=== PATIENT | male | born 1960 | race African-American/Black ===

== ENCOUNTER 2016-12-07 21:05 | Inpatient (IN) | payer OTHER ==
[2016-12-07 22:00] VITALS: BMI 37.5
--- NOTE | 2016-12-07 22:10 | HP ---
COWS - Scale Resting Pulse: 1= [place] 81-100 Sweatin= Chills/Flushing Restless Observation: 3= Extraneous Movement Pupil Size: 1= Pupils >than Normal Bone or Joint Aches: 1= Mild Discomfort Runny Nose/ Eye Tearin= Runny Nose/Eyes GI Upset > 30mins: 2= Nausea/Diarrhea Tremor Observation: 2= Slight Tremor Visible Yawning Observation: 1= 1-2x During Session Anxiety or Irritability: 1=Feels Anxious/Irritable Goose Flesh Skin: 0=Smooth Skin COWS Score: 15 CIWA Score - CIWA Score Nausea/Vomitin-Mild Nausea/No Vomiting Muscle Tremors: 3 Anxiety: 3 Agitation: 3 Paroxysmal Sweats: 3 Orientation: 0-Oriented Tacttile Disturbances: 2-Mild Itch/Numbness/Burn Auditory Disturbances: 0-None Visual Disturbances: 0-None Headache: 1-Very Mild CIWA-Ar Total Score: 16 Admission ROS S - HPI Chief Complaint: WITHDRAWAL SYMPTOMS Allergies/Adverse Reactions: Allergies Allergy/AdvReac Type Severity Reaction Status Date / Time aspirin Allergy Severe Hives Verified 02/18/16 20:43 History of Present Illness: 56 Y.O. MAN WITH AN EXTENSIVE HISTORY OF ALCOHOL AND DRUG DEPENDENCE IS SEEKING DETOX. HE WAS LAST HERE FOR DETOX IN 02/2016. HE STATES HIS LONGEST PERIOD OF SOBRIETY WAS 8 YEARS. Exam Limitations: Intoxication - Ebola screening Have you traveled outside of the country in the last 21 days: No Have you had contact with anyone from an Ebola affected area: No Have you been sick,other than usual withdrawal symptoms: No Do you have a fever: No - Review of Systems Constitutional: No Symptoms Reported EENT: reports: Blurred Vision, Eye Pain (RIGHT EYE), Tearing, Ear Discharge ( RIGHT EYE) Respiratory: reports: Wheezing Cardiac: reports: No Symptoms Reported GI: reports: Constipated : reports: No Symptoms Reported Musculoskeletal: reports: Back Pain Integumentary: reports: No Symptoms Reported Neuro: reports: Numbness, Tingling, Tremors Endocrine: reports: No Symptoms Reported Hematology: reports: No Symptoms Reported Psychiatric: reports: Orientated x3, Depressed Other Systems: Reviewed and Negative Patient History - Patient Medical History Hx Anemia: No Hx Asthma: Yes Hx Chronic Obstructive Pulmonary Disease (COPD): No Hx Cancer: No Hx Cardiac Disorders: No Hx Congestive Heart Failure: No Hx Hypertension: Yes Hx Hypercholesterolemia: No Hx Pacemaker: No HX Cerebrovascular Accident: No Hx Seizures: No Hx Dementia: No Hx Diabetes: No Hx Gastrointestinal Disorders: No Hx Liver Disease: Yes (HEP C) Hx Genitourinary Disorders: No Hx Sexually Transmitted Disorders: No Hx Renal Disease (ESRD): No Hx Thyroid Disease: No Hx Human Immunodeficiency Virus (HIV): Yes (since 1991) Hx Hepatitis C: Yes (TREATED) Hx Depression: Yes Hx Suicide Attempt: No Hx Bipolar Disorder: No Hx Schizophrenia: No - Patient Surgical History Past Surgical History: Yes Hx Neurologic Surgery: No Hx Cataract Extraction: No Hx Cardiac Surgery: No Hx Lung Surgery: No Hx Breast Surgery: No Hx Breast Biopsy: No Hx Abdominal Surgery: No Hx Appendectomy: Yes Hx Cholecystectomy: No Hx Genitourinary Surgery: No Hx Section: No Hx Orthopedic Surgery: No Other Surgical History: R index finger tip amputated at age 7. Anesthesia Reaction: No - PPD History Documented Results: Positive w/proof Results: CXR IN PPD to be Administered?: No - Reproductive History Patient is a Female of Child Bearing Age (11 -55 yrs old): No - Smoking Cessation Smoking history: Current every day smoker Have you smoked in the past 12 months: Yes Aproximately how many cigarettes per day: 8 Cigars Per Day: 0 Hx Chewing Tobacco Use: No Initiated information on smoking cessation: Yes 'Breaking Loose' booklet given: 12/07/16 - Substance & Tx. History Hx Alcohol Use: Yes Hx Substance Use: Yes Substance Use Type: Alcohol, Cocaine, Heroin Hx Substance Use Treatment: Yes - Substances Abused Alcohol Frequency: Daily Amount used: 2 PINTS Age of first use: 12 Date of Last Use: 12/07/16 Heroin Route: Injection Frequency: 3-6 times per week Amount used: 4 BAGS Age of first use: 17 Date of Last Use: 12/07/16 Cocaine Route: Injection Frequency: 3-6 times per week Amount used: $20 Age of first use: 18 Date of Last Use: 12/07/16 Family Disease History - Family Disease History Family Disease History: CA: Mother (cervical cancer,cva,), Other: Father (alcohol,) Admission Physical Exam BHS - Vital Signs Vital Signs: Vital Signs - 24 hr 04/05/17 21:58 Temperature 97.3 F L Pulse Rate 98 H Respiratory 20 Rate Blood Pressure 137/84 - Physical General Appearance: Yes: Intoxicated, Other (REDDENED RIGHT EYE) HEENTM: Yes: Normocephalic, Normal Voice Respiratory: Yes: Chest Non-Tender, Lungs Clear, Normal Breath Sounds, No Respiratory Distress, No Accessory Muscle Use Neck: Yes: No masses,lesions,Nodules Breast: Yes: Breast Exam Deferred Cardiology: Yes: Regular Rhythm, Regular Rate, S1, S2 Abdominal: Yes: Flat, Soft Genitourinary: Yes: Other (NO COMPLAINTS REPORTED) Musculoskeletal: Yes: Back pain Extremities: Yes: Normal Inspection, Normal Range of Motion, Non-Tender Neurological: Yes: Alert, Normal Mood/Affect, Normal Response Integumentary: Yes: Normal Color, Dry, Warm, Track Carreon Lymphatic: Yes: Within Normal Limits - Diagnostic (1) Alcohol dependence Current Visit: Yes Status: Chronic (2) Cocaine dependence, uncomplicated Current Visit: Yes Status: Chronic (3) Nicotine dependence Current Visit: Yes Status: Chronic Qualifiers: Nicotine product type: cigarettes Substance use status: uncomplicated Qualified Code(s): F17.210 - Nicotine dependence, cigarettes, uncomplicated (4) Opioid dependence with withdrawal Current Visit: Yes Status: Chronic (5) Asthma Current Visit: Yes Status: Chronic Qualifiers: Asthma severity: mild intermittent Asthma complication type: uncomplicated Qualified Code(s): J45.20 - Mild intermittent asthma, uncomplicated (6) HIV (human immunodeficiency virus infection) Current Visit: Yes Status: Chronic (7) Hepatitis C antibody positive in blood Current Visit: Yes Status: Chronic (8) TB (tuberculosis), treated Current Visit: Yes Status: Chronic Cleared for Admission [facility] - Detox or Rehab [facility] Level of Care: Medically Managed Detox Regimen/Protocol: Methadone/Librium [facility] Breath Alcohol Content Breath Alcohol Content: 0 Urine Drug Screen - Results Urine Drug Screen Results: REMIGIO-Cocaine, OPI-Opiates, MTD-Methadone, OXY- Oxycodone
[2016-12-07] MEDS ORDERED: LISINOPRIL 10 MG TABLET (FP) PO ONE (22:21)
[2016-12-07] MEDS ORDERED: NICOTINE POLACRILEX 2 MG GUM BC PRN (22:49)
[2016-12-07] MEDS ORDERED: MENTHOL/PHENOL 1 EACH UD MM PRN (22:49)
[2016-12-07] MEDS ORDERED: MAG HYDROX/AL HYDROX/SIMETH 30 ML UNIT-DOSE CUP PO PRN (22:49)
[2016-12-07] MEDS ORDERED: hydrOXYzine PAMOATE 50 MG CAPSULE (FP) PO PRN (22:49)
[2016-12-07] MEDS ORDERED: P-EPHED 60MG/TRIPROLIDI 2.5MG TABLET PO PRN (22:49)
[2016-12-07] MEDS ORDERED: MAGNESIUM HYDROX 2400MG/30ML ORAL SUSPENSION 30 ML CUP PO PRN (22:49)
[2016-12-07] MEDS ORDERED: MAGNESIUM CITRATE 300 ML BOTTLE PO PRN (22:49)
[2016-12-07] MEDS ORDERED: guaiFENesin/D-METHORPHAN HB 10 ML UNIT-DOSE CUPS PO PRN (22:49)
[2016-12-07] MEDS ORDERED: LOPERAMIDE HCL 2 MG CAPSULE PO PRN (22:49)
[2016-12-07] MEDS ORDERED: ACETAMINOPHEN 325 MG TABLET (FP) PO PRN (22:49)
[2016-12-08] MEDS ORDERED: chlordiazePOXIDE HCL 25 MG CAPSULE PO PRN
[2016-12-08] MEDS ORDERED: chlordiazePOXIDE HCL 25 MG CAPSULE PO ONE
[2016-12-08] MEDS: diphenhydrAMINE HCL 50 MG CAPSULE PO PRN ×2 (00:35→22:57)
[2016-12-08] MEDS: chlordiazePOXIDE HCL 25 MG CAPSULE PO SCH ×4 (05:27→22:57)
[2016-12-08] MEDS: OFLOXACIN 0.3% OPHTHALMIC SOLUTION 5 ML BOTTLE OD SCH ×2 (06:49→11:34)
[2016-12-08] MEDS ORDERED: ATAZANAVIR SO4 300 MG CAPSULE PO SCH (08:00)
--- NOTE | 2016-12-08 09:44 | PN ---
S CIWA - CIWA Score Nausea/Vomitin Muscle Tremors: 3 Anxiety: 3 Agitation: 3 Paroxysmal Sweats: 1-Minimal Palms Moist Orientation: 0-Oriented Tacttile Disturbances: 1-Very Mild Itch/Numbness Auditory Disturbances: 1-Very Mild Visual Disturbances: 1-Very Mild Sensitivity Headache: 2-Mild CIWA-Ar Total Score: 18 BHS COWS - Scale Resting Pulse: 0= PA 80 or Below Sweatin= Chills/Flushing Restless Observation: 3= Extraneous Movement Pupil Size: 1= Pupils >than Normal Bone or Joint Aches: 2= Severe Diffuse Aches Runny Nose/ Eye Tearin= Nasal Congestion GI Upset > 30mins: 3= Vomiting/Diarrhea Tremor Observation of Outstretched Hands: 2= Slight Tremor Visible Yawning Observation: 1= 1-2x During Session Anxiety or Irritability: 2=Irritable/Anxious Goose Flesh Skin: 0=Smooth Skin COWS Score: 16 BHS Progress Note (SOAP) Subjective: ALERT,IRRITABLE,ANXIOUS,INTERRUPTED SLEEP,TREMOR,PAIN IN THE BODY AND BACK, IRRITABLE WITH REDNESS IN MEDIAL ASPECT OF RIGHT EYE,HISTORY OF DRY EYES Objective: 12/08/16 09:42 Vital Signs Temperature 97.7 F 12/08/16 06:24 Pulse Rate 68 12/08/16 06:24 Respiratory Rate 16 12/08/16 06:24 Blood Pressure 109/74 12/08/16 06:24 O2 Sat by Pulse Oximetry (%) EKG NSR NO CHEST PAIN ,NO SOB,NO DIZZINESS LABS PENDING Assessment: 12/08/16 09:43 IRRITATION WITH REDNESS OF RIGHT EYE Plan: CONTINUE DETOX,TOBREX OPH SOLUTION AND ARTIFICIAL TEAR DROP
[2016-12-08 09:58] LABS: MCH 27.1 pg (25.7-33.7); MCHC 33.1 g/dl (32.0-35.9); MEAN CELL VOLUME 81.9 fl (80-96); PLATELET COUNT 150 K/MM3 (134-434); RDW 14.2 % (11.9-15.9); WHITE BLOOD COUNT 6.9 K/mm3 (4.0-10.0)
[2016-12-08] MEDS ORDERED: METHADONE HCL 10 MG TABLET (FOR DETOX USE ONLY) PO ONE ×3 (10:00→22:00)
[2016-12-08] MEDS ORDERED: ABACAVIR SULFATE 300 MG TABLET PO SCH (10:00)
[2016-12-08] MEDS ORDERED: TENOFOVIR DISOPROXIL FUMARATE 300 MG TABLET PO SCH (10:00)
[2016-12-08] MEDS ORDERED: RITONAVIR 100 MG TABLET PO SCH (10:00)
[2016-12-08] MEDS ORDERED: LISINOPRIL 10 MG TABLET (FP) PO ONE (10:00)
[2016-12-08 10:12] LABS: ALBUMIN 3.2 g/dl (3.4-5.0); ALK PHOS 93 U/L (45-117); ANION GAP 9 (8-16); BILIRUBIN,TOTAL 0.2 mg/dL (0.2-1.0); CALCIUM 8.9 mg/dL (8.5-10.1); CO2 28 mmol/L (21-32); CREATININE 1.2 mg/dL (0.7-1.3); GLUCOSE,RANDOM 76 mg/dL (74-106); SGOT/AST 15 U/L (15-37); SGPT/ALT 17 U/L (12-78); TOT PROT 6.7 g/dl (6.4-8.2)
[2016-12-08] MEDS: NICOTINE 14 MG/24 HOURS TOPICAL PATCH TD SCH (10:57)
[2016-12-08] MEDS: PRENATAL VITAMINS W/ FOLIC ACID TABLET (FP) PO SCH (10:58)
[2016-12-08] MEDS: TOBRAMYCIN 0.3% OPHTH SOLN 5 ML BOTTLE OD SCH ×2 (12:05→17:41)
[2016-12-08] MEDS: ARTIFICIAL TEARS (POLYVINYL ALCOHOL 1.4%) OPTH DROPS OU SCH ×2 (12:59→22:51)
--- NOTE | 2016-12-08 16:27 | EKG ---
Test Reason : Blood Pressure : / mmHG Vent. Rate : 075 BPM Atrial Rate : 075 BPM P-R Int : 182 ms QRS Dur : 086 ms QT Int : 364 ms P-R-T Axes : 064 -37 056 degrees QTc Int : 406 ms NORMAL SINUS RHYTHM LEFT AXIS DEVIATION MINIMAL VOLTAGE CRITERIA FOR LVH, MAY BE NORMAL VARIANT ABNORMAL ECG NO PREVIOUS ECGS AVAILABLE Confirmed by ANDRADE FERNANDES MD ([id number]) on 12/08/2016 4:27:23 PM Referred By: Confirmed By:ANDRADE FERNANDES MD
[2016-12-08 20:55] LABS: URINE APPEARANCE CLEAR; URINE BILIRUBIN NEGATIVE (NEGATIVE); URINE BLOOD NEGATIVE (NEGATIVE); URINE COLOR DKYELLOW; URINE GLUCOSE (UA) NEGATIVE (NEGATIVE); URINE KETONE NEGATIVE (NEGATIVE); URINE LEUK ESTERASE NEGATIVE (NEGATIVE); URINE NITRITE NEGATIVE (NEGATIVE); URINE UROBILINOGEN NEGATIVE E.U./dl (0.2-1.0)
[2016-12-08 21:05] LABS: URINE PROTEIN 2+ (NEGATIVE)
[2016-12-08 21:11] LABS: URINE MUCUS RARE; URINE RBC 6 /hpf (0-3); URINE WBC 1 /hpf (3-5)
[2016-12-08] MEDS: RITONAVIR 100 MG TABLET PO SCH (22:52)
[2016-12-08] MEDS: SULFAMETHOXAZOLE/TRIMETHOPRIM 800MG/160MG D.S. TABLET PO SCH (22:52)
[2016-12-08] MEDS: THIAMINE HCL 100 MG TABLET (FP) PO SCH (22:53)
[2016-12-08] MEDS: ABACAVIR SULFATE 300 MG TABLET PO SCH (22:53)
[2016-12-08] MEDS ORDERED: ATAZANAVIR SO4 300 MG CAPSULE PO ONE (23:02)
[2016-12-08] MEDS ORDERED: TENOFOVIR DISOPROXIL FUMARATE 300 MG TABLET PO ONE (23:05)
[2016-12-09] MEDS: TOBRAMYCIN 0.3% OPHTH SOLN 5 ML BOTTLE OD SCH ×5 (00:04→23:05)
[2016-12-09] MEDS: chlordiazePOXIDE HCL 25 MG CAPSULE PO SCH ×4 (05:58→23:04)
[2016-12-09] MEDS: ARTIFICIAL TEARS (POLYVINYL ALCOHOL 1.4%) OPTH DROPS OU SCH ×3 (06:00→22:55)
[2016-12-09] MEDS ORDERED: METHADONE HCL 5 MG TABLET (FOR DETOX USE ONLY) PO SCH (10:00)
[2016-12-09] MEDS: PRENATAL VITAMINS W/ FOLIC ACID TABLET (FP) PO SCH (11:05)
[2016-12-09] MEDS: NICOTINE 14 MG/24 HOURS TOPICAL PATCH TD SCH (11:06)
--- NOTE | 2016-12-09 11:50 | PN ---
[facility] CIWA - CIWA Score Nausea/Vomitin Muscle Tremors: 3 Anxiety: 2 Agitation: 2 Paroxysmal Sweats: 1-Minimal Palms Moist Orientation: 0-Oriented Tacttile Disturbances: 1-Very Mild Itch/Numbness Auditory Disturbances: 1-Very Mild Visual Disturbances: 1-Very Mild Sensitivity Headache: 2-Mild CIWA-Ar Total Score: 16 BHS COWS - Scale Resting Pulse: 0= [place] 80 or Below Sweatin= Chills/Flushing Restless Observation: 3= Extraneous Movement Pupil Size: 1= Pupils >than Normal Bone or Joint Aches: 2= Severe Diffuse Aches Runny Nose/ Eye Tearin= Runny Nose/Eyes GI Upset > 30mins: 2= Nausea/Diarrhea Tremor Observation of Outstretched Hands: 2= Slight Tremor Visible Yawning Observation: 1= 1-2x During Session Anxiety or Irritability: 2=Irritable/Anxious Goose Flesh Skin: 0=Smooth Skin COWS Score: 16 [facility] Progress Note (SOAP) Subjective: ALERT,IRRITABLE,ANXIOUS,INTERRUPTED SLEEP,PAIN IN THE BODY AND BACK Objective: 12/09/16 11:49 Vital Signs Temperature 97 F L 12/09/16 09:55 Pulse Rate 84 12/09/16 09:55 Respiratory Rate 16 12/09/16 09:55 Blood Pressure 137/90 12/09/16 09:55 O2 Sat by Pulse Oximetry (%) Laboratory Last Values WBC 6.9 K/mm3 (4.0-10.0) 12/08/16 07:00 RBC 4.28 M/mm3 (4.00-5.60) 12/08/16 07:00 Hgb 11.6 GM/dL (11.7-16.9) L 12/08/16 07:00 Hct 35.1 % (35.4-49) L 12/08/16 07:00 MCV 81.9 fl (80-96) 12/08/16 07:00 MCHC 33.1 g/dl (32.0-35.9) 12/08/16 07:00 RDW 14.2 % (11.9-15.9) 12/08/16 07:00 Plt Count 150 K/MM3 (134-434) 12/08/16 07:00 MPV 10.0 fl (7.5-11.1) 12/08/16 07:00 Sodium 140 mmol/L (136-145) 12/08/16 07:00 Potassium 4.3 mmol/L (3.5-5.1) 12/08/16 07:00 Chloride 103 mmol/L (98-107) 12/08/16 07:00 Carbon Dioxide 28 mmol/L (21-32) 12/08/16 07:00 Anion Gap 9 (8-16) 12/08/16 07:00 BUN 10 mg/dL (7-18) 12/08/16 07:00 Creatinine 1.2 mg/dL (0.7-1.3) 12/08/16 07:00 Creat Clearance w eGFR > 60 (>60) 12/08/16 07:00 Random Glucose 76 mg/dL (74-106) D 12/08/16 07:00 Calcium 8.9 mg/dL (8.5-10.1) 12/08/16 07:00 Total Bilirubin 0.2 mg/dL (0.2-1.0) D 12/08/16 07:00 AST 15 U/L (15-37) D 12/08/16 07:00 ALT 17 U/L (12-78) D 12/08/16 07:00 Alkaline Phosphatase 93 U/L (45-117) 12/08/16 07:00 Total Protein 6.7 g/dl (6.4-8.2) 12/08/16 07:00 Albumin 3.2 g/dl (3.4-5.0) L 12/08/16 07:00 Urine Color Dkyellow 12/08/16 13:00 Urine Appearance Clear 12/08/16 13:00 Urine pH 5.0 (5.0-8.0) 12/08/16 13:00 Ur Specific [place] 1.028 (1.001-1.035) 12/08/16 13:00 Urine Protein 2+ (NEGATIVE) H 12/08/16 13:00 Urine Glucose (UA) Negative (NEGATIVE) 12/08/16 13:00 Urine Ketones Negative (NEGATIVE) 12/08/16 13:00 Urine Blood Negative (NEGATIVE) 12/08/16 13:00 Urine Nitrite Negative (NEGATIVE) 12/08/16 13:00 Urine Bilirubin Negative (NEGATIVE) 12/08/16 13:00 Urine Urobilinogen Negative E.U./dl (0.2-1.0) 12/08/16 13:00 Ur Leukocyte Esterase Negative (NEGATIVE) 12/08/16 13:00 Urine RBC 6 /hpf (0-3) 12/08/16 13:00 Urine WBC 1 /hpf (3-5) 12/08/16 13:00 Urine Mucus Rare 12/08/16 13:00 RPR Titer Nonreactive (NONREACTIVE) 12/08/16 07:00 Assessment: 12/09/16 11:49 WITHDRAWAL SYMPTOM Plan: CONTINUE DETOX
--- NOTE | 2016-12-09 18:42 | CONSULT ---
[facility] Psychiatric Consult - Data Date of interview: 12/09/16 Admission source: [facility] Identifying data: Approached patient for psychiatric interview.Mr Stover, politely,declined to be interviewed." I don't think it is necessary.I don't have psychiatric issues to discuss.I am dealing with substance abuse.Thank you, doctor." Nursing staff made aware.
[2016-12-09] MEDS: SULFAMETHOXAZOLE/TRIMETHOPRIM 800MG/160MG D.S. TABLET PO SCH (22:55)
[2016-12-09] MEDS: ATAZANAVIR SO4 300 MG CAPSULE PO SCH (22:55)
[2016-12-09] MEDS: ABACAVIR SULFATE 300 MG TABLET PO SCH (22:55)
[2016-12-09] MEDS: TENOFOVIR DISOPROXIL FUMARATE 300 MG TABLET PO SCH (22:55)
[2016-12-09] MEDS ORDERED: ATAZANAVIR SO4 300 MG CAPSULE PO ONE (23:02)
[2016-12-09] MEDS ORDERED: TENOFOVIR DISOPROXIL FUMARATE 300 MG TABLET PO ONE (23:04)
[2016-12-09] MEDS: RITONAVIR 100 MG TABLET PO SCH (23:04)
[2016-12-09] MEDS: THIAMINE HCL 100 MG TABLET (FP) PO SCH (23:06)
[2016-12-09] MEDS: diphenhydrAMINE HCL 50 MG CAPSULE PO PRN (23:07)
[2016-12-10] MEDS: chlordiazePOXIDE 5 MG CAPSULE PO SCH ×4 (06:16→23:47)
[2016-12-10] MEDS: ARTIFICIAL TEARS (POLYVINYL ALCOHOL 1.4%) OPTH DROPS OU SCH ×2 (06:17→23:47)
[2016-12-10] MEDS: TOBRAMYCIN 0.3% OPHTH SOLN 5 ML BOTTLE OD SCH ×3 (06:18→17:48)
[2016-12-10] MEDS: PRENATAL VITAMINS W/ FOLIC ACID TABLET (FP) PO SCH (11:28)
[2016-12-10] MEDS: METHADONE HCL 5 MG TABLET (FOR DETOX USE ONLY) PO SCH (11:29)
[2016-12-10] MEDS: NICOTINE 14 MG/24 HOURS TOPICAL PATCH TD SCH (11:29)
--- NOTE | 2016-12-10 15:48 | PN ---
S Progress Note (SOAP) Subjective: Constipation, Fatigue. Objective: PT. A & O X 3. 12/10/16 15:47 Vital Signs Temperature 96.8 F L 12/10/16 14:39 Pulse Rate 72 12/10/16 14:39 Respiratory Rate 20 12/10/16 14:39 Blood Pressure 142/92 12/10/16 14:39 O2 Sat by Pulse Oximetry (%) Laboratory Last Values WBC 6.9 K/mm3 (4.0-10.0) 12/08/16 07:00 RBC 4.28 M/mm3 (4.00-5.60) 12/08/16 07:00 Hgb 11.6 GM/dL (11.7-16.9) L 12/08/16 07:00 Hct 35.1 % (35.4-49) L 12/08/16 07:00 MCV 81.9 fl (80-96) 12/08/16 07:00 MCHC 33.1 g/dl (32.0-35.9) 12/08/16 07:00 RDW 14.2 % (11.9-15.9) 12/08/16 07:00 Plt Count 150 K/MM3 (134-434) 12/08/16 07:00 MPV 10.0 fl (7.5-11.1) 12/08/16 07:00 Sodium 140 mmol/L (136-145) 12/08/16 07:00 Potassium 4.3 mmol/L (3.5-5.1) 12/08/16 07:00 Chloride 103 mmol/L (98-107) 12/08/16 07:00 Carbon Dioxide 28 mmol/L (21-32) 12/08/16 07:00 Anion Gap 9 (8-16) 12/08/16 07:00 BUN 10 mg/dL (7-18) 12/08/16 07:00 Creatinine 1.2 mg/dL (0.7-1.3) 12/08/16 07:00 Creat Clearance w eGFR > 60 (>60) 12/08/16 07:00 Random Glucose 76 mg/dL (74-106) D 12/08/16 07:00 Calcium 8.9 mg/dL (8.5-10.1) 12/08/16 07:00 Total Bilirubin 0.2 mg/dL (0.2-1.0) D 12/08/16 07:00 AST 15 U/L (15-37) D 12/08/16 07:00 ALT 17 U/L (12-78) D 12/08/16 07:00 Alkaline Phosphatase 93 U/L (45-117) 12/08/16 07:00 Total Protein 6.7 g/dl (6.4-8.2) 12/08/16 07:00 Albumin 3.2 g/dl (3.4-5.0) L 12/08/16 07:00 Urine Color Dkyellow 12/08/16 13:00 Urine Appearance Clear 12/08/16 13:00 Urine pH 5.0 (5.0-8.0) 12/08/16 13:00 Ur Specific [place] 1.028 (1.001-1.035) 12/08/16 13:00 Urine Protein 2+ (NEGATIVE) H 12/08/16 13:00 Urine Glucose (UA) Negative (NEGATIVE) 12/08/16 13:00 Urine Ketones Negative (NEGATIVE) 12/08/16 13:00 Urine Blood Negative (NEGATIVE) 12/08/16 13:00 Urine Nitrite Negative (NEGATIVE) 12/08/16 13:00 Urine Bilirubin Negative (NEGATIVE) 12/08/16 13:00 Urine Urobilinogen Negative E.U./dl (0.2-1.0) 12/08/16 13:00 Ur Leukocyte Esterase Negative (NEGATIVE) 12/08/16 13:00 Urine RBC 6 /hpf (0-3) 12/08/16 13:00 Urine WBC 1 /hpf (3-5) 12/08/16 13:00 Urine Mucus Rare 12/08/16 13:00 RPR Titer Nonreactive (NONREACTIVE) 12/08/16 07:00 LABS NOTED. Assessment: 12/10/16 15:47 WITHDRAWAL SYMPTOMS. Plan: CONTINUE DETOX. ADVISED PATIENT TO FOLLOW-UP WITH [facility] / REHAB MEDICAL PROVIDER AFTER DISCHARGE FROM DETOX FOR GENERAL MEDICAL ASSESSMENT AND FOR ABNORMAL ADMISSION LAB VALUES.
[2016-12-10] MEDS: ALBUTEROL SO4 6.7 GM HFA INHALER IH PRN (17:52)
[2016-12-10] MEDS: THIAMINE HCL 100 MG TABLET (FP) PO SCH (23:46)
[2016-12-10] MEDS: SULFAMETHOXAZOLE/TRIMETHOPRIM 800MG/160MG D.S. TABLET PO SCH (23:46)
[2016-12-10] MEDS: RITONAVIR 100 MG TABLET PO SCH (23:48)
[2016-12-10] MEDS: TENOFOVIR DISOPROXIL FUMARATE 300 MG TABLET PO SCH (23:48)
[2016-12-10] MEDS: ABACAVIR SULFATE 300 MG TABLET PO SCH (23:48)
[2016-12-10] MEDS: ATAZANAVIR SO4 300 MG CAPSULE PO SCH (23:50)
[2016-12-10] MEDS: diphenhydrAMINE HCL 50 MG CAPSULE PO PRN (23:53)
[2016-12-11] MEDS: chlordiazePOXIDE HCL 10 MG CAPSULE PO SCH ×4 (06:36→23:04)
[2016-12-11] MEDS: ARTIFICIAL TEARS (POLYVINYL ALCOHOL 1.4%) OPTH DROPS OU SCH ×4 (06:42→23:04)
[2016-12-11] MEDS: TOBRAMYCIN 0.3% OPHTH SOLN 5 ML BOTTLE OD SCH ×4 (06:43→17:54)
[2016-12-11] MEDS: METHADONE HCL 5 MG TABLET (FOR DETOX USE ONLY) PO SCH (11:04)
[2016-12-11] MEDS: PRENATAL VITAMINS W/ FOLIC ACID TABLET (FP) PO SCH (11:04)
[2016-12-11] MEDS: NICOTINE 14 MG/24 HOURS TOPICAL PATCH TD SCH (11:04)
[2016-12-11] MEDS ORDERED: BISACODYL 5 MG TABLET.DR (FP) PO ONE (14:30)
--- NOTE | 2016-12-11 15:29 | PN ---
[facility] Progress Note (SOAP) Subjective: Anxious, interrupted sleep, sweating, constipation (hard stool yesterday, wants stool softener) Objective: 12/11/16 15:27 Last Vital Signs Temp Pulse Resp BP Pulse Ox 97.9 F 94 H 18 124/86 12/11/16 14:05 12/11/16 14:05 12/11/16 14:05 12/11/16 14:05 Laboratory Tests 12/08/16 12/08/16 12/08/16 07:00 07:00 07:00 WBC 6.9 RBC 4.28 Hgb 11.6 L Hct 35.1 L MCV 81.9 MCHC 33.1 RDW 14.2 Plt Count 150 MPV 10.0 Sodium 140 Potassium 4.3 Chloride 103 Carbon Dioxide 28 Anion Gap 9 BUN 10 Creatinine 1.2 Creat Clearance w eGFR > 60 Random Glucose 76 D Calcium 8.9 Total Bilirubin 0.2 D AST 15 D ALT 17 D Alkaline Phosphatase 93 Total Protein 6.7 Albumin 3.2 L Urine Color Urine Appearance Urine pH Ur Specific [place] Urine Protein Urine Glucose (UA) Urine Ketones Urine Blood Urine Nitrite Urine Bilirubin Urine Urobilinogen Ur Leukocyte Esterase Urine RBC Urine WBC Urine Mucus RPR Titer Nonreactive 12/08/16 13:00 WBC RBC Hgb Hct MCV MCHC RDW Plt Count MPV Sodium Potassium Chloride Carbon Dioxide Anion Gap BUN Creatinine Creat Clearance w eGFR Random Glucose Calcium Total Bilirubin AST ALT Alkaline Phosphatase Total Protein Albumin Urine Color Dkyellow Urine Appearance Clear Urine pH 5.0 Ur Specific [place] 1.028 Urine Protein 2+ H Urine Glucose (UA) Negative Urine Ketones Negative Urine Blood Negative Urine Nitrite Negative Urine Bilirubin Negative Urine Urobilinogen Negative Ur Leukocyte Esterase Negative Urine RBC 6 Urine WBC 1 Urine Mucus Rare RPR Titer Labs noted: UA: 2+ protein Assessment: 12/11/16 15:28 Withdrawal symptoms Noted with proteinuria Plan: Continue detox Proteinuria: encouraged to drink lots of water, repeat UA
[2016-12-11] MEDS: THIAMINE HCL 100 MG TABLET (FP) PO SCH (23:02)
[2016-12-11] MEDS: ABACAVIR SULFATE 300 MG TABLET PO SCH (23:03)
[2016-12-11] MEDS: SULFAMETHOXAZOLE/TRIMETHOPRIM 800MG/160MG D.S. TABLET PO SCH (23:03)
[2016-12-11] MEDS: ATAZANAVIR SO4 300 MG CAPSULE PO SCH (23:03)
[2016-12-11] MEDS: RITONAVIR 100 MG TABLET PO SCH (23:04)
[2016-12-11] MEDS: TENOFOVIR DISOPROXIL FUMARATE 300 MG TABLET PO SCH (23:04)
[2016-12-12] MEDS: TOBRAMYCIN 0.3% OPHTH SOLN 5 ML BOTTLE OD SCH ×4 (00:30→18:53)
[2016-12-12] MEDS: ARTIFICIAL TEARS (POLYVINYL ALCOHOL 1.4%) OPTH DROPS OU SCH ×3 (06:40→23:09)
[2016-12-12] MEDS ORDERED: METHADONE HCL 10 MG TABLET (FOR DETOX USE ONLY) PO SCH (10:00)
[2016-12-12] MEDS: NICOTINE 14 MG/24 HOURS TOPICAL PATCH TD SCH (10:18)
[2016-12-12] MEDS: PRENATAL VITAMINS W/ FOLIC ACID TABLET (FP) PO SCH (10:18)
[2016-12-12] MEDS: ALBUTEROL SO4 6.7 GM HFA INHALER IH PRN (10:20)
--- NOTE | 2016-12-12 11:10 | PN ---
S Progress Note (SOAP) Subjective: ALERT,IRRITABLE,ANXIOUS,INTERRUPTED SLEEP Objective: 12/12/16 11:09 Vital Signs Temperature 98.2 F 12/12/16 09:47 Pulse Rate 89 12/12/16 09:47 Respiratory Rate 18 12/12/16 09:47 Blood Pressure 136/83 12/12/16 09:47 O2 Sat by Pulse Oximetry (%) Assessment: 12/12/16 11:09 WITHDRAWAL SYMPTOM Plan: CONTINUE DETOX,DISCHARGE IN AM
[2016-12-12 18:19] LABS: URINE APPEARANCE CLEAR; URINE BILIRUBIN NEGATIVE (NEGATIVE); URINE BLOOD NEGATIVE (NEGATIVE); URINE COLOR YELLOW; URINE GLUCOSE (UA) NEGATIVE (NEGATIVE); URINE KETONE NEGATIVE (NEGATIVE); URINE LEUK ESTERASE NEGATIVE (NEGATIVE); URINE NITRITE NEGATIVE (NEGATIVE); URINE UROBILINOGEN NEGATIVE E.U./dl (0.2-1.0)
[2016-12-12 18:35] LABS: URINE PROTEIN 1+ (NEGATIVE)
[2016-12-12 19:26] LABS: URINE MUCUS RARE; URINE RBC 7 /hpf (0-3); URINE WBC 2 /hpf (3-5)
[2016-12-12] MEDS: RITONAVIR 100 MG TABLET PO SCH (23:03)
[2016-12-12] MEDS: TENOFOVIR DISOPROXIL FUMARATE 300 MG TABLET PO SCH (23:03)
[2016-12-12] MEDS: THIAMINE HCL 100 MG TABLET (FP) PO SCH (23:05)
[2016-12-12] MEDS: ATAZANAVIR SO4 300 MG CAPSULE PO SCH (23:07)
[2016-12-12] MEDS: ABACAVIR SULFATE 300 MG TABLET PO SCH (23:07)
[2016-12-12] MEDS: SULFAMETHOXAZOLE/TRIMETHOPRIM 800MG/160MG D.S. TABLET PO SCH (23:09)
[2016-12-12] MEDS: diphenhydrAMINE HCL 50 MG CAPSULE PO PRN (23:10)
[2016-12-13] MEDS: TOBRAMYCIN 0.3% OPHTH SOLN 5 ML BOTTLE OD SCH ×2 (00:50→05:48)
[2016-12-13] MEDS: ARTIFICIAL TEARS (POLYVINYL ALCOHOL 1.4%) OPTH DROPS OU SCH (05:49)
[2016-12-13] MEDS ORDERED: METHADONE HCL 5 MG TABLET (FOR DETOX USE ONLY) PO SCH (06:00)
--- NOTE | 2016-12-13 08:48 | PN ---
S Progress Note (SOAP) Subjective: ALERT,NO COMPLAINT Objective: 12/13/16 08:47 Vital Signs Temperature 98.6 F 12/13/16 06:00 Pulse Rate 75 12/13/16 06:00 Respiratory Rate 18 12/13/16 06:00 Blood Pressure 98/64 12/13/16 06:00 O2 Sat by Pulse Oximetry (%) Assessment: 12/13/16 08:47 DETOX COMPLETED,NO WITHDRAWAL SYMPTOM Plan: DISCHARGE TODAY,FOLLOW UP WITH AFTER CARE PROGRAM ARRANGEMENT
--- NOTE | 2016-12-13 08:52 | DS ---
[facility] Detox Discharge Summary Admission Date: 12/07/16 Discharge Date: 12/13/16 - History Present History: Alcohol Dependence, Cocaine Dependence, Opioid Dependence Additional Comments: FOLLOW UP WITH AFTER CARE PROGRAM ARRANGEMENT AND PMD FOR MEDICAL PROBLEM Pertinent Past History: ASTHMA HIV HEPATITIS C TUBERCULOSIS TREATED - Physical Exam Results Vital Signs: Vital Signs Temperature 98.6 F 12/13/16 06:00 Pulse Rate 75 12/13/16 06:00 Respiratory Rate 18 12/13/16 06:00 Blood Pressure 98/64 12/13/16 06:00 O2 Sat by Pulse Oximetry (%) Pertinent Admission Physical Exam Findings: WITHDRAWAL SYMPTOM - Treatment Hospital Course: Detox Protocol Followed, Detoxed Safely, Responded well, Discharged Condition Good Patient has Accepted a Rehab Referral to: [facility] - Medication Discharge Medications: Ambulatory Orders Albuterol Sulfate Inhaler - [Ventolin HFA Inhaler -] 2 inh PO Q4H PRN #1 canister 09/28/15 Ritonavir [Norvir -] 100 mg PO DAILY #30 tab 09/28/15 Sulfamethoxazole/Trimethoprim [Bactrim DS -] 1 each PO DAILY #30 tablet Abacavir Sulfate [Ziagen -] 600 mg PO HS 12/07/16 Atazanavir [Reyataz -] 300 mg PO HS 12/07/16 Tenofovir Disoproxil Fumarate [Viread -] 300 mg PO HS 12/07/16 - AMA Did Patient Leave Against Medical Advice: No
[2016-12-13] MEDS: ALBUTEROL SO4 6.7 GM HFA INHALER IH PRN (09:26)
[2016-12-13 09:49] VITALS: BP 149/89; PULSE 89; TEMP 98.3
== END 2016-12-13 09:55 | disposition home or self-care (01) | DRG 773 ==
LOC: YASAS 21:05 → Y6N 23:29
PROVIDERS: ADMIT Internal Medicine Addiction Medicine; ATTEND Internal Medicine Addiction Medicine
PROC: HZ2ZZZZ Detoxification Services for Substance Abuse Treatment (ICD-10-PCS; principal; 2016-12-13)
DX: F11.23 Opioid dependence with withdrawal (principal); F10.20 Alcohol dependence, uncomplicated; F14.20 Cocaine dependence, uncomplicated; F17.210 Nicotine dependence, cigarettes, uncomplicated; J45.20 Mild intermittent asthma, uncomplicated; B18.2 Chronic viral hepatitis C; Z21 Asymptomatic human immunodeficiency virus [HIV] infection status; R76.11 Nonspecific reaction to tuberculin skin test without active tuberculosis
CPT/HCPCS: 36415; 71020-TC; 80053; 81003; 81015; 85027; 86593; 93005; 93010

== ENCOUNTER 2017-03-23 08:24 | Inpatient (IN) | payer OTHER ==
[2017-03-23 10:01] VITALS: BMI 38.0
--- NOTE | 2017-03-23 12:28 | HP ---
COWS - Scale Resting Pulse: 1= [place] 81-100 Sweatin= Chills/Flushing Restless Observation: 3= Extraneous Movement Pupil Size: 0= Normal to Room Light Bone or Joint Aches: 4=Acute Joint/Muscle Pain Runny Nose/ Eye Tearin= Nasal Congestion GI Upset > 30mins: 1= Stomach Cramp Tremor Observation: 2= Slight Tremor Visible Yawning Observation: 2= >3x During Session Anxiety or Irritability: 1=Feels Anxious/Irritable Goose Flesh Skin: 0=Smooth Skin COWS Score: 16 Admission ROS S - HPI Chief Complaint: DETOX TX FOR HEROIN DEPENDENCE Allergies/Adverse Reactions: Allergies Allergy/AdvReac Type Severity Reaction Status Date / Time aspirin Allergy Severe Hives Verified 03/23/17 10:20 History of Present Illness: 56 Y/O AA/MALE WITH A HX OF HEROIN AND COCAINE DEPENDENCE SEEKING DETOX TX. PT HAS PREVIOUS EPISODE OF DETOX TX HERE. Exam Limitations: No Limitations - Ebola screening Have you traveled outside of the country in the last 21 days: No Have you had contact with anyone from an Ebola affected area: No Have you been sick,other than usual withdrawal symptoms: No Do you have a fever: No - Review of Systems Constitutional: Chills, Night Sweats, Changes in sleep EENT: reports: Blurred Vision, Tearing, Nose Congestion, Dental Problems (FULL UPPER NAD LOWER DENTURES) Respiratory: reports: Shortness of Breath (HX ASTHMA), Wheezing Cardiac: reports: No Symptoms Reported GI: reports: Constipated, Diarrhea, Poor Fluid Intake, Abdominal cramping : reports: Dysuria (DUE TO HEROIN USE) Musculoskeletal: reports: Back Pain, Joint Pain, Muscle Pain Integumentary: reports: Bruising (SCARS FROM IVDU INJ SITES) Neuro: reports: Headache, Numbness (HX NUROPATHY RIGHT LEG), Tingling Endocrine: reports: No Symptoms Reported Hematology: reports: Anemia (IN THE PAST) Psychiatric: reports: Orientated x3, Anxious Other Systems: Reviewed and Negative Patient History - Patient Medical History Hx Anemia: Yes (IN THE PAST) Hx Asthma: Yes (Pt is on MDI.) Hx Chronic Obstructive Pulmonary Disease (COPD): No Hx Cancer: No Hx Cardiac Disorders: No Hx Congestive Heart Failure: No Hx Hypertension: Yes (on meds.) Hx Hypercholesterolemia: No Hx Pacemaker: No HX Cerebrovascular Accident: No Hx Seizures: No Hx Dementia: No Hx Diabetes: No Hx Gastrointestinal Disorders: No Hx Liver Disease: Yes (HEP C) Hx Genitourinary Disorders: No Hx Sexually Transmitted Disorders: Yes (GONORRHEA HX) Hx Renal Disease (ESRD): No Hx Thyroid Disease: No Hx Human Immunodeficiency Virus (HIV): Yes (since 1991;ON MED ) Hx Hepatitis C: Yes (TREATED) Hx Depression: No Hx Suicide Attempt: No (DENIES) Hx Bipolar Disorder: No Hx Schizophrenia: No - Patient Surgical History Past Surgical History: Yes Hx Neurologic Surgery: No Hx Cataract Extraction: No Hx Cardiac Surgery: No Hx Lung Surgery: No Hx Breast Surgery: No Hx Breast Biopsy: No Hx Abdominal Surgery: No Hx Appendectomy: Yes Hx Cholecystectomy: No Hx Genitourinary Surgery: No Hx Orthopedic Surgery: No Other Surgical History: R index finger tip amputated at age 7. Anesthesia Reaction: No - PPD History Previous Implant?: Yes Documented Results: Positive w/proof Implanted On Prior R Admission?: No Results: CXR NEG 12/19 PPD to be Administered?: No - Reproductive History Patient is a Female of Child Bearing Age (11 -55 yrs old): No (MALE) Patient : (N/C) - Smoking Cessation Smoking history: Current every day smoker Have you smoked in the past 12 months: Yes Aproximately how many cigarettes per day: 5 Cigars Per Day: 0 Hx Chewing Tobacco Use: No Initiated information on smoking cessation: Yes 'Breaking Loose' booklet given: 03/23/17 - Substance & Tx. History Hx Alcohol Use: No Hx Substance Use: Yes (HEROIN/COCAINE) Substance Use Type: Cocaine, Heroin Hx Substance Use Treatment: Yes (LAST TX AT [facility] DETOX) - Substances Abused Heroin Route: Injection Frequency: Daily Amount used: 5-6 BAGS Age of first use: 18 Date of Last Use: 03/22/17 Cocaine Route: Injection Frequency: Daily Amount used: $20 Age of first use: 17 Date of Last Use: 03/22/17 Family Disease History - Family Disease History Family Disease History: CA: Mother (cervical cancer,cva,), Other: Father (alcohol,) Admission Physical Exam BHS - Vital Signs Vital Signs: Vital Signs - 24 hr 03/23/17 09:59 Temperature 98.2 F Pulse Rate 81 Respiratory 20 Rate Blood Pressure 151/100 - Physical General Appearance: Yes: Moderate Distress, Obese, Irritable, Anxious HEENTM: Yes: EOMI, CHRISTINE, Pharynx Normal Respiratory: Yes: Chest Non-Tender, Lungs Clear, Normal Breath Sounds, No Respiratory Distress Neck: Yes: No masses,lesions,Nodules, Supple, Trachea in good position Breast: Yes: Breast Exam Deferred Cardiology: Yes: Regular Rhythm, Regular Rate, S1, S2 Abdominal: Yes: Normal Bowel Sounds, Non Tender, Soft, Protuberent Genitourinary: Yes: Other (N/C) Musculoskeletal: Yes: full range of Motion, Gait Steady Extremities: Yes: Normal Range of Motion, Non-Tender Neurological: Yes: 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, Fully Oriented, Alert, Motor Strength 5/5 Integumentary: Yes: Dry, Warm, Track Carreon (OLD SCARS ON BOTH HANDS FROM IVD INJ.) Lymphatic: Yes: Within Normal Limits - Diagnostic (1) Asthma Current Visit: Yes Status: Chronic Qualifiers: Asthma severity: mild intermittent Asthma complication type: uncomplicated Qualified Code(s): J45.20 - Mild intermittent asthma, uncomplicated (2) Cocaine dependence, uncomplicated Current Visit: Yes Status: Acute (3) HIV (human immunodeficiency virus infection) Current Visit: Yes Status: Chronic (4) Hepatitis C antibody positive in blood Current Visit: Yes Status: Chronic (5) Nicotine dependence Current Visit: Yes Status: Acute Qualifiers: Nicotine product type: cigarettes Substance use status: in withdrawal Qualified Code(s): F17.213 - Nicotine dependence, cigarettes, with withdrawal (6) Opioid dependence with withdrawal Current Visit: Yes Status: Acute Cleared for Admission [facility] - Detox or Rehab [facility] Level of Care: Medically Managed Detox Regimen/Protocol: Methadone [facility] Breath Alcohol Content Breath Alcohol Content: 0 Urine Drug Screen - Results Drug Screen Negative: No Urine Drug Screen Results: REMIGIO-Cocaine, OPI-Opiates
[2017-03-23] MEDS ORDERED: LOPERAMIDE HCL 2 MG CAPSULE PO PRN (12:40)
[2017-03-23] MEDS ORDERED: guaiFENesin/D-METHORPHAN HB 10 ML UNIT-DOSE CUPS PO PRN (12:40)
[2017-03-23] MEDS ORDERED: P-EPHED 60MG/TRIPROLIDI 2.5MG TABLET PO PRN (12:40)
[2017-03-23] MEDS ORDERED: MENTHOL/PHENOL 1 EACH UD MM PRN (12:40)
[2017-03-23] MEDS ORDERED: NICOTINE POLACRILEX 2 MG GUM BC PRN (12:40)
[2017-03-23] MEDS ORDERED: IBUPROFEN 400 MG TABLET (FP) PO PRN (12:40)
[2017-03-23] MEDS ORDERED: MAGNESIUM CITRATE 300 ML BOTTLE PO PRN (12:40)
[2017-03-23] MEDS ORDERED: ACETAMINOPHEN 325 MG TABLET (FP) PO PRN (12:40)
[2017-03-23] MEDS ORDERED: MAG HYDROX/AL HYDROX/SIMETH 30 ML UNIT-DOSE CUP PO PRN (12:40)
[2017-03-23] MEDS ORDERED: HYPROMELLOSE OP SCH (12:45)
[2017-03-23] MEDS ORDERED: GLYCERIN OP SCH (12:45)
[2017-03-23] MEDS ORDERED: [UNRECOGNIZED DRUG - OTHER] OP SCH (12:45)
[2017-03-23] MEDS ORDERED: PEG OP SCH (12:45)
[2017-03-23] MEDS ORDERED: METHADONE HCL 10 MG TABLET (FOR DETOX USE ONLY) PO ONE ×2 (12:55→23:00)
[2017-03-23] MEDS: SULFAMETHOXAZOLE/TRIMETHOPRIM 800MG/160MG D.S. TABLET PO SCH (14:05)
[2017-03-23] MEDS: diazePAM 5 MG TABLET PO PRN ×2 (14:05→22:36)
[2017-03-23] MEDS: LISINOPRIL 20 MG TABLET (FP) PO SCH (14:05)
[2017-03-23] MEDS: NICOTINE 14 MG/24 HOURS TOPICAL PATCH TD SCH (14:09)
[2017-03-23 15:46] LABS: URINE APPEARANCE CLEAR; URINE BILIRUBIN NEGATIVE (NEGATIVE); URINE BLOOD 1+ (NEGATIVE); URINE COLOR YELLOW; URINE GLUCOSE (UA) NEGATIVE (NEGATIVE); URINE KETONE NEGATIVE (NEGATIVE); URINE LEUK ESTERASE NEGATIVE (NEGATIVE); URINE NITRITE NEGATIVE (NEGATIVE); URINE PROTEIN 2+ (NEGATIVE); URINE UROBILINOGEN NEGATIVE mg/dL (0.2-1.0)
[2017-03-23 15:49] LABS: URINE MUCUS RARE; URINE RBC 11 /hpf (0-3); URINE WBC 1 /hpf (3-5)
--- NOTE | 2017-03-23 16:38 | EKG ---
Test Reason : Blood Pressure : / mmHG Vent. Rate : 079 BPM Atrial Rate : 079 BPM P-R Int : 188 ms QRS Dur : 090 ms QT Int : 386 ms P-R-T Axes : 067 -36 053 degrees QTc Int : 442 ms NORMAL SINUS RHYTHM LEFT AXIS DEVIATION ABNORMAL ECG WHEN COMPARED WITH ECG OF 07-DEC-2016 23:24, NO SIGNIFICANT CHANGE WAS FOUND Confirmed by ANDRADE FERNANDES MD ([id number]) on 03/23/2017 4:38:21 PM Referred By: Confirmed By:ANDRADE FERNANDES MD
[2017-03-23] MEDS: THIAMINE HCL 100 MG TABLET (FP) PO SCH (22:36)
[2017-03-23] MEDS: ARTIFICIAL TEARS (POLYVINYL ALCOHOL 1.4%) OPTH DROPS OU SCH (22:39)
[2017-03-24] MEDS ORDERED: METHADONE HCL 10 MG TABLET (FOR DETOX USE ONLY) PO ONE (10:00)
[2017-03-24 10:16] LABS: MCH 27.1 pg (25.7-33.7); MCHC 33.3 g/dl (32.0-35.9); MEAN CELL VOLUME 81.4 fl (80-96); MEAN PLT VOLUME 9.7 fl (7.5-11.1); PLATELET COUNT 161 K/MM3 (134-434); RDW 13.8 % (11.9-15.9); WHITE BLOOD COUNT 6.6 K/mm3 (4.0-10.0)
[2017-03-24] MEDS: ARTIFICIAL TEARS (POLYVINYL ALCOHOL 1.4%) OPTH DROPS OU SCH ×2 (10:44→22:37)
[2017-03-24] MEDS: SULFAMETHOXAZOLE/TRIMETHOPRIM 800MG/160MG D.S. TABLET PO SCH (10:44)
[2017-03-24] MEDS: NICOTINE 14 MG/24 HOURS TOPICAL PATCH TD SCH (10:44)
[2017-03-24] MEDS: LISINOPRIL 20 MG TABLET (FP) PO SCH (10:44)
[2017-03-24] MEDS: PRENATAL VITAMINS W/ FOLIC ACID TABLET (FP) PO SCH (10:44)
[2017-03-24] MEDS: diazePAM 5 MG TABLET PO PRN ×3 (10:47→22:36)
[2017-03-24] MEDS: MAGNESIUM HYDROX 2400MG/30ML ORAL SUSPENSION 30 ML CUP PO PRN (10:48)
--- NOTE | 2017-03-24 10:49 | PN ---
[facility] COWS - Scale Resting Pulse: 1= [place] 81-100 Sweatin= Chills/Flushing Restless Observation: 3= Extraneous Movement Pupil Size: 1= Pupils >than Normal Bone or Joint Aches: 2= Severe Diffuse Aches Runny Nose/ Eye Tearin= Runny Nose/Eyes GI Upset > 30mins: 2= Nausea/Diarrhea Tremor Observation of Outstretched Hands: 2= Slight Tremor Visible Yawning Observation: 1= 1-2x During Session Anxiety or Irritability: 2=Irritable/Anxious Goose Flesh Skin: 0=Smooth Skin COWS Score: 17 S Progress Note (SOAP) Subjective: ALERT,IRRITABLE,ANXIOUS,INTERRUPTED SLEEP,TREMOR,PAIN IN THE BODY AND BACK Objective: 03/24/17 10:47 Vital Signs Temperature 98.7 F 03/24/17 10:00 Pulse Rate 93 H 03/24/17 10:00 Respiratory Rate 16 03/24/17 10:00 Blood Pressure 139/88 03/24/17 10:00 O2 Sat by Pulse Oximetry (%) EKG EKG NSR Laboratory Last Values WBC 6.6 K/mm3 (4.0-10.0) 03/24/17 06:30 RBC 4.82 M/mm3 (4.00-5.60) 03/24/17 06:30 Hgb 13.1 GM/dL (11.7-16.9) D 03/24/17 06:30 Hct 39.3 % (35.4-49) 03/24/17 06:30 MCV 81.4 fl (80-96) 03/24/17 06:30 MCH 27.1 pg (25.7-33.7) 03/24/17 06:30 MCHC 33.3 g/dl (32.0-35.9) 03/24/17 06:30 RDW 13.8 % (11.9-15.9) 03/24/17 06:30 Plt Count 161 K/MM3 (134-434) 03/24/17 06:30 MPV 9.7 fl (7.5-11.1) 03/24/17 06:30 Sodium 138 mmol/L (136-145) 03/24/17 06:30 Potassium 3.9 mmol/L (3.5-5.1) 03/24/17 06:30 Chloride 104 mmol/L (98-107) 03/24/17 06:30 Urine Color Yellow 03/23/17 13:20 Urine Appearance Clear 03/23/17 13:20 Urine pH 6.0 (5.0-8.0) 03/23/17 13:20 Ur Specific [place] >= 1.030 (1.005-1.025) H 03/23/17 13:20 Urine Protein 2+ (NEGATIVE) H 03/23/17 13:20 Urine Glucose (UA) Negative (NEGATIVE) 03/23/17 13:20 Urine Ketones Negative (NEGATIVE) 03/23/17 13:20 Urine Blood 1+ (NEGATIVE) H 03/23/17 13:20 Urine Nitrite Negative (NEGATIVE) 03/23/17 13:20 Urine Bilirubin Negative (NEGATIVE) 03/23/17 13:20 Urine Urobilinogen Negative mg/dL (0.2-1.0) 03/23/17 13:20 Ur Leukocyte Esterase Negative (NEGATIVE) 03/23/17 13:20 Urine RBC 11 /hpf (0-3) 03/23/17 13:20 Urine WBC 1 /hpf (3-5) 03/23/17 13:20 Urine Mucus Rare 03/23/17 13:20 LABS PENDING Assessment: 03/24/17 10:48 WITHDRAWAL SYMPTOM Plan: CONTINUE DETOX,REPEAT UA
[2017-03-24 10:56] LABS: ALBUMIN 3.1 g/dl (3.4-5.0); ALK PHOS 89 U/L (45-117); ANION GAP 8 (8-16); BILIRUBIN,TOTAL 0.2 mg/dL (0.2-1.0); CO2 26 mmol/L (21-32); CREATININE 1.1 mg/dL (0.7-1.3); GLUCOSE,RANDOM 84 mg/dL (74-106); SGOT/AST 13 U/L (15-37); SGPT/ALT 17 U/L (12-78); TOT PROT 6.7 g/dl (6.4-8.2)
--- NOTE | 2017-03-24 16:28 | CONSULT ---
[facility] Psychiatric Consult - Data Date of interview: 03/24/17 Admission source: [facility] Identifying data: Readmission to [facility] for this 56 y/o AA male seeking detox treatment on for heroin and cocaine dependence.Patient is single without children,domiciled,unemployed and supported on SSI benefits. Substance Abuse History: Patient reports a long history of substance abuse ( heroin and cocaine via the intravenous route since age 17).Smokes 1/2 pack of cigarettes daily. Medical History: Significant for HIV infection since 1991,bronchial asthma, hepatitis C,hypertension,gonorrhea (treated),anemia and surgical amputation of fingertip of right index (age [age]). Psychiatric History: Patient denies. Physical/Sexual Abuse/Trauma History: Patient denies. Additional Comment: Urine Drug Screen Results: REMIGIO-Cocaine, OPI-Opiates.Noted. Mental Status Exam - Mental Status Exam Alert and Oriented to: Time, Place, Person Cognitive Function: Good Patient Appearance: Well Groomed Mood: Hopeful, Euthymic Affect: Appropriate, Normal Range Patient Behavior: Appropriate, Cooperative Speech Pattern: Clear, Appropriate Voice Loudness: Normal Thought Process: Intact, Goal Oriented Thought Disorder: Not Present Hallucinations: Denies Suicidal Ideation: Denies Homicidal Ideation: Denies Insight/Judgement: Poor Sleep: Well Appetite: Good Muscle strength/Tone: Normal Gait/Station: Normal Psychiatric Findings - Problem List ([place] 1, 2,3) (1) Opioid dependence with withdrawal Current Visit: Yes Status: Acute (2) Cocaine dependence, uncomplicated Current Visit: Yes Status: Acute (3) Nicotine dependence Current Visit: Yes Status: Acute Qualifiers: Nicotine product type: cigarettes Substance use status: in withdrawal Qualified Code(s): F17.213 - Nicotine dependence, cigarettes, with withdrawal (4) Asthma Current Visit: Yes Status: Chronic Qualifiers: Asthma severity: mild intermittent Asthma complication type: uncomplicated Qualified Code(s): J45.20 - Mild intermittent asthma, uncomplicated (5) HIV (human immunodeficiency virus infection) Current Visit: Yes Status: Chronic (6) Hepatitis C antibody positive in blood Current Visit: Yes Status: Chronic - Initial Treatment Plan Initial Treatment Plan: Psychoeducation.Detoxification in progress.Observation.
[2017-03-24] MEDS: THIAMINE HCL 100 MG TABLET (FP) PO SCH (22:37)
[2017-03-25] MEDS ORDERED: METHADONE HCL 5 MG TABLET (FOR DETOX USE ONLY) PO ONE (10:00)
[2017-03-25] MEDS: LISINOPRIL 20 MG TABLET (FP) PO SCH (10:50)
[2017-03-25] MEDS: diazePAM 5 MG TABLET PO PRN ×2 (10:50→22:36)
[2017-03-25] MEDS: PRENATAL VITAMINS W/ FOLIC ACID TABLET (FP) PO SCH (10:50)
[2017-03-25] MEDS: SULFAMETHOXAZOLE/TRIMETHOPRIM 800MG/160MG D.S. TABLET PO SCH (10:50)
[2017-03-25] MEDS: ARTIFICIAL TEARS (POLYVINYL ALCOHOL 1.4%) OPTH DROPS OU SCH ×2 (10:51→22:34)
[2017-03-25] MEDS: NICOTINE 14 MG/24 HOURS TOPICAL PATCH TD SCH (10:51)
--- NOTE | 2017-03-25 11:36 | PN ---
[facility] COWS - Scale Resting Pulse: 0= [place] 80 or Below Sweatin= Chills/Flushing Restless Observation: 3= Extraneous Movement Pupil Size: 1= Pupils >than Normal Bone or Joint Aches: 2= Severe Diffuse Aches Runny Nose/ Eye Tearin= Runny Nose/Eyes GI Upset > 30mins: 3= Vomiting/Diarrhea Tremor Observation of Outstretched Hands: 2= Slight Tremor Visible Yawning Observation: 1= 1-2x During Session Anxiety or Irritability: 2=Irritable/Anxious Goose Flesh Skin: 0=Smooth Skin COWS Score: 17 S Progress Note (SOAP) Subjective: alert,irritable,anxious,interrupted sleep,tremor,pain in the body and back Objective: 03/25/17 11:35 Vital Signs Temperature 97.2 F L 03/25/17 09:46 Pulse Rate 82 03/25/17 09:46 Respiratory Rate 18 03/25/17 09:46 Blood Pressure 139/94 03/25/17 09:46 O2 Sat by Pulse Oximetry (%) Laboratory Last Values WBC 6.6 K/mm3 (4.0-10.0) 03/24/17 06:30 RBC 4.82 M/mm3 (4.00-5.60) 03/24/17 06:30 Hgb 13.1 GM/dL (11.7-16.9) D 03/24/17 06:30 Hct 39.3 % (35.4-49) 03/24/17 06:30 MCV 81.4 fl (80-96) 03/24/17 06:30 MCH 27.1 pg (25.7-33.7) 03/24/17 06:30 MCHC 33.3 g/dl (32.0-35.9) 03/24/17 06:30 RDW 13.8 % (11.9-15.9) 03/24/17 06:30 Plt Count 161 K/MM3 (134-434) 03/24/17 06:30 MPV 9.7 fl (7.5-11.1) 03/24/17 06:30 Sodium 138 mmol/L (136-145) 03/24/17 06:30 Potassium 3.9 mmol/L (3.5-5.1) 03/24/17 06:30 Chloride 104 mmol/L (98-107) 03/24/17 06:30 Carbon Dioxide 26 mmol/L (21-32) 03/24/17 06:30 Anion Gap 8 (8-16) 03/24/17 06:30 BUN 11 mg/dL (7-18) 03/24/17 06:30 Creatinine 1.1 mg/dL (0.7-1.3) 03/24/17 06:30 Creat Clearance w eGFR > 60 (>60) 03/24/17 06:30 Random Glucose 84 mg/dL (74-106) 03/24/17 06:30 Calcium 9.0 mg/dL (8.5-10.1) 03/24/17 06:30 Total Bilirubin 0.2 mg/dL (0.2-1.0) 03/24/17 06:30 AST 13 U/L (15-37) L 03/24/17 06:30 ALT 17 U/L (12-78) 03/24/17 06:30 Alkaline Phosphatase 89 U/L (45-117) 03/24/17 06:30 Total Protein 6.7 g/dl (6.4-8.2) 03/24/17 06:30 Albumin 3.1 g/dl (3.4-5.0) L 03/24/17 06:30 Urine Color Yellow 03/23/17 13:20 Urine Appearance Clear 03/23/17 13:20 Urine pH 6.0 (5.0-8.0) 03/23/17 13:20 Ur Specific [place] >= 1.030 (1.005-1.025) H 03/23/17 13:20 Urine Protein 2+ (NEGATIVE) H 03/23/17 13:20 Urine Glucose (UA) Negative (NEGATIVE) 03/23/17 13:20 Urine Ketones Negative (NEGATIVE) 03/23/17 13:20 Urine Blood 1+ (NEGATIVE) H 03/23/17 13:20 Urine Nitrite Negative (NEGATIVE) 03/23/17 13:20 Urine Bilirubin Negative (NEGATIVE) 03/23/17 13:20 Urine Urobilinogen Negative mg/dL (0.2-1.0) 03/23/17 13:20 Ur Leukocyte Esterase Negative (NEGATIVE) 03/23/17 13:20 Urine RBC 11 /hpf (0-3) 03/23/17 13:20 Urine WBC 1 /hpf (3-5) 03/23/17 13:20 Urine Mucus Rare 03/23/17 13:20 RPR Titer Nonreactive (NONREACTIVE) 03/24/17 06:30 Assessment: 03/25/17 11:35 withdrawal symptom Plan: continue detox
[2017-03-25] MEDS: diphenhydrAMINE HCL 50 MG CAPSULE PO PRN (22:34)
[2017-03-25] MEDS: THIAMINE HCL 100 MG TABLET (FP) PO SCH (22:35)
[2017-03-26] MEDS: ALBUTEROL SO4 6.7 GM HFA INHALER IH PRN ×2 (08:09→22:34)
[2017-03-26] MEDS ORDERED: METHADONE HCL 5 MG TABLET (FOR DETOX USE ONLY) PO ONE (10:00)
[2017-03-26] MEDS: SULFAMETHOXAZOLE/TRIMETHOPRIM 800MG/160MG D.S. TABLET PO SCH (10:21)
[2017-03-26] MEDS: diazePAM 5 MG TABLET PO PRN (10:21)
[2017-03-26] MEDS: PRENATAL VITAMINS W/ FOLIC ACID TABLET (FP) PO SCH (10:21)
[2017-03-26] MEDS: LISINOPRIL 20 MG TABLET (FP) PO SCH (10:21)
[2017-03-26] MEDS: ARTIFICIAL TEARS (POLYVINYL ALCOHOL 1.4%) OPTH DROPS OU SCH ×2 (10:22→22:33)
[2017-03-26] MEDS: NICOTINE 14 MG/24 HOURS TOPICAL PATCH TD SCH (10:22)
--- NOTE | 2017-03-26 10:27 | PN ---
S Progress Note (SOAP) Subjective: ALERT,IRRITABLE,ANXIOUS,INTERRUPTED SLEEP,PAIN IN THE BODY AND BACK Objective: 03/26/17 10:25 Vital Signs Temperature 97.7 F 03/26/17 09:54 Pulse Rate 102 H 03/26/17 09:54 Respiratory Rate 20 03/26/17 09:54 Blood Pressure 126/73 03/26/17 09:54 O2 Sat by Pulse Oximetry (%) Laboratory Last Values WBC 6.6 K/mm3 (4.0-10.0) 03/24/17 06:30 RBC 4.82 M/mm3 (4.00-5.60) 03/24/17 06:30 Hgb 13.1 GM/dL (11.7-16.9) D 03/24/17 06:30 Hct 39.3 % (35.4-49) 03/24/17 06:30 MCV 81.4 fl (80-96) 03/24/17 06:30 MCH 27.1 pg (25.7-33.7) 03/24/17 06:30 MCHC 33.3 g/dl (32.0-35.9) 03/24/17 06:30 RDW 13.8 % (11.9-15.9) 03/24/17 06:30 Plt Count 161 K/MM3 (134-434) 03/24/17 06:30 MPV 9.7 fl (7.5-11.1) 03/24/17 06:30 Sodium 138 mmol/L (136-145) 03/24/17 06:30 Potassium 3.9 mmol/L (3.5-5.1) 03/24/17 06:30 Chloride 104 mmol/L (98-107) 03/24/17 06:30 Carbon Dioxide 26 mmol/L (21-32) 03/24/17 06:30 Anion Gap 8 (8-16) 03/24/17 06:30 BUN 11 mg/dL (7-18) 03/24/17 06:30 Creatinine 1.1 mg/dL (0.7-1.3) 03/24/17 06:30 Creat Clearance w eGFR > 60 (>60) 03/24/17 06:30 Random Glucose 84 mg/dL (74-106) 03/24/17 06:30 Calcium 9.0 mg/dL (8.5-10.1) 03/24/17 06:30 Total Bilirubin 0.2 mg/dL (0.2-1.0) 03/24/17 06:30 AST 13 U/L (15-37) L 03/24/17 06:30 ALT 17 U/L (12-78) 03/24/17 06:30 Alkaline Phosphatase 89 U/L (45-117) 03/24/17 06:30 Total Protein 6.7 g/dl (6.4-8.2) 03/24/17 06:30 Albumin 3.1 g/dl (3.4-5.0) L 03/24/17 06:30 Urine Color Yellow 03/23/17 13:20 Urine Appearance Clear 03/23/17 13:20 Urine pH 6.0 (5.0-8.0) 03/23/17 13:20 Ur Specific [place] >= 1.030 (1.005-1.025) H 03/23/17 13:20 Urine Protein 2+ (NEGATIVE) H 03/23/17 13:20 Urine Glucose (UA) Negative (NEGATIVE) 03/23/17 13:20 Urine Ketones Negative (NEGATIVE) 03/23/17 13:20 Urine Blood 1+ (NEGATIVE) H 03/23/17 13:20 Urine Nitrite Negative (NEGATIVE) 03/23/17 13:20 Urine Bilirubin Negative (NEGATIVE) 03/23/17 13:20 Urine Urobilinogen Negative mg/dL (0.2-1.0) 03/23/17 13:20 Ur Leukocyte Esterase Negative (NEGATIVE) 03/23/17 13:20 Urine RBC 11 /hpf (0-3) 03/23/17 13:20 Urine WBC 1 /hpf (3-5) 03/23/17 13:20 Urine Mucus Rare 03/23/17 13:20 RPR Titer Nonreactive (NONREACTIVE) 03/24/17 06:30 Assessment: 03/26/17 10:26 WITHDRAWAL SYMPTOM Plan: CONTINUE DETOX
[2017-03-26 12:37] LABS: URINE APPEARANCE CLEAR; URINE BILIRUBIN NEGATIVE (NEGATIVE); URINE BLOOD NEGATIVE (NEGATIVE); URINE COLOR LTYELLOW; URINE GLUCOSE (UA) NEGATIVE (NEGATIVE); URINE KETONE NEGATIVE (NEGATIVE); URINE LEUK ESTERASE NEGATIVE (NEGATIVE); URINE NITRITE NEGATIVE (NEGATIVE); URINE UROBILINOGEN NEGATIVE mg/dL (0.2-1.0)
[2017-03-26 12:41] LABS: URINE PROTEIN 2+ (NEGATIVE)
[2017-03-26 12:43] LABS: URINE MUCUS RARE; URINE RBC 4 /hpf (0-3); URINE WBC 1 /hpf (3-5)
[2017-03-26] MEDS: THIAMINE HCL 100 MG TABLET (FP) PO SCH (22:32)
[2017-03-26] MEDS: diphenhydrAMINE HCL 50 MG CAPSULE PO PRN (22:33)
[2017-03-27] MEDS ORDERED: METHADONE HCL 10 MG TABLET (FOR DETOX USE ONLY) PO ONE (10:00)
[2017-03-27] MEDS: SULFAMETHOXAZOLE/TRIMETHOPRIM 800MG/160MG D.S. TABLET PO SCH (10:27)
[2017-03-27] MEDS: PRENATAL VITAMINS W/ FOLIC ACID TABLET (FP) PO SCH (10:27)
[2017-03-27] MEDS: LISINOPRIL 20 MG TABLET (FP) PO SCH (10:27)
[2017-03-27] MEDS: NICOTINE 14 MG/24 HOURS TOPICAL PATCH TD SCH (10:28)
[2017-03-27] MEDS: ARTIFICIAL TEARS (POLYVINYL ALCOHOL 1.4%) OPTH DROPS OU SCH ×2 (10:28→22:43)
--- NOTE | 2017-03-27 10:28 | PN ---
S Progress Note (SOAP) Subjective: ALERT,IRRITABLE,ANXIOUS,INTERRUPTED SLEEP Objective: 03/27/17 10:27 Vital Signs Temperature 95.9 F L 03/27/17 06:12 Pulse Rate 72 03/27/17 06:12 Respiratory Rate 18 03/27/17 06:12 Blood Pressure 114/80 03/27/17 06:12 O2 Sat by Pulse Oximetry (%) Assessment: 03/27/17 10:28 WITHDRAWAL SYMPTOM Plan: CONTINUE DETOX,DISCHARGE IN AM
[2017-03-27] MEDS: THIAMINE HCL 100 MG TABLET (FP) PO SCH (22:43)
[2017-03-27] MEDS: diphenhydrAMINE HCL 50 MG CAPSULE PO PRN (22:44)
[2017-03-27] MEDS: ALBUTEROL SO4 6.7 GM HFA INHALER IH PRN (22:45)
[2017-03-28] MEDS: MAGNESIUM HYDROX 2400MG/30ML ORAL SUSPENSION 30 ML CUP PO PRN (05:50)
[2017-03-28] MEDS ORDERED: METHADONE HCL 5 MG TABLET (FOR DETOX USE ONLY) PO ONE (06:00)
--- NOTE | 2017-03-28 08:47 | DS ---
[facility] Detox Discharge Summary Admission Date: 03/23/17 Discharge Date: 03/28/17 - History Present History: Cocaine Dependence, Opioid Dependence Pertinent Past History: ASTHMA HIV HEPATITIS C NICOTINE DEPENDENCE - Physical Exam Results Vital Signs: Vital Signs Temperature 97.7 F 03/28/17 06:00 Pulse Rate 62 03/28/17 06:00 Respiratory Rate 20 03/28/17 06:00 Blood Pressure 122/71 03/28/17 06:00 O2 Sat by Pulse Oximetry (%) Pertinent Admission Physical Exam Findings: WITHDRAWAL SYMPTOM - Treatment Hospital Course: Detox Protocol Followed, Detoxed Safely, Responded well, Discharged Condition Good Patient has Accepted a Rehab Referral to: DECLINED - Medication Discharge Medications: Ambulatory Orders Albuterol Sulfate Inhaler - [Ventolin HFA Inhaler -] 2 inh PO Q4H PRN #1 canister 09/28/15 Sulfamethoxazole/Trimethoprim [Bactrim DS -] 1 each PO DAILY #30 tablet Abacavir Sulfate [Ziagen -] 600 mg PO HS 12/07/16 Tenofovir Disoproxil Fumarate [Viread -] 300 mg PO HS 12/07/16 Darunavir/Cobicistat [Prezcobix 800 mg-150 mg Tablet] 1 each PO HS 03/23/17 Lisinopril [Prinivil] 20 mg PO DAILY 03/23/17 Peg 400/Hypromellose/Glycerin [Eye Drop Tears] 15 ml OP BID 03/23/17 - Diagnosis (1) Cocaine dependence, uncomplicated Current Visit: Yes Status: Acute (2) Nicotine dependence Current Visit: Yes Status: Acute Qualifiers: Nicotine product type: cigarettes Substance use status: in withdrawal Qualified Code(s): F17.213 - Nicotine dependence, cigarettes, with withdrawal (3) Opioid dependence with withdrawal Current Visit: Yes Status: Acute (4) Asthma Current Visit: Yes Status: Chronic Qualifiers: Asthma severity: mild intermittent Asthma complication type: uncomplicated Qualified Code(s): J45.20 - Mild intermittent asthma, uncomplicated (5) HIV (human immunodeficiency virus infection) Current Visit: Yes Status: Chronic (6) Hepatitis C antibody positive in blood Current Visit: Yes Status: Chronic - AMA Did Patient Leave Against Medical Advice: No
--- NOTE | 2017-03-28 08:52 | DS ---
[facility] Detox Discharge Summary Admission Date: 03/23/17 Discharge Date: 03/28/17 - History Present History: Cocaine Dependence, Opioid Dependence Additional Comments: DECLINED Pertinent Past History: ASTHMA HIV HYPERTENSION HEPATITIS C - Physical Exam Results Vital Signs: Vital Signs Temperature 97.7 F 03/28/17 06:00 Pulse Rate 62 03/28/17 06:00 Respiratory Rate 20 03/28/17 06:00 Blood Pressure 122/71 03/28/17 06:00 O2 Sat by Pulse Oximetry (%) - Treatment Hospital Course: Detox Protocol Followed, Detoxed Safely, Responded well, Discharged Condition Good - Medication Discharge Medications: Ambulatory Orders Albuterol Sulfate Inhaler - [Ventolin HFA Inhaler -] 2 inh PO Q4H PRN #1 canister 09/28/15 Sulfamethoxazole/Trimethoprim [Bactrim DS -] 1 each PO DAILY #30 tablet Abacavir Sulfate [Ziagen -] 600 mg PO HS 12/07/16 Tenofovir Disoproxil Fumarate [Viread -] 300 mg PO HS 12/07/16 Darunavir/Cobicistat [Prezcobix 800 mg-150 mg Tablet] 1 each PO HS 03/23/17 Lisinopril [Prinivil] 20 mg PO DAILY 03/23/17 Peg 400/Hypromellose/Glycerin [Eye Drop Tears] 15 ml OP BID 03/23/17 - Diagnosis (1) Cocaine dependence, uncomplicated Current Visit: Yes Status: Acute (2) Nicotine dependence Current Visit: Yes Status: Acute Qualifiers: Nicotine product type: cigarettes Substance use status: in withdrawal Qualified Code(s): F17.213 - Nicotine dependence, cigarettes, with withdrawal (3) Opioid dependence with withdrawal Current Visit: Yes Status: Acute (4) Asthma Current Visit: Yes Status: Chronic Qualifiers: Asthma severity: mild intermittent Asthma complication type: uncomplicated Qualified Code(s): J45.20 - Mild intermittent asthma, uncomplicated (5) HIV (human immunodeficiency virus infection) Current Visit: Yes Status: Chronic (6) Hepatitis C antibody positive in blood Current Visit: Yes Status: Chronic - AMA Did Patient Leave Against Medical Advice: No
[2017-03-28] MEDS: LISINOPRIL 20 MG TABLET (FP) PO SCH (09:19)
[2017-03-28] MEDS: PRENATAL VITAMINS W/ FOLIC ACID TABLET (FP) PO SCH (09:19)
[2017-03-28] MEDS: NICOTINE 14 MG/24 HOURS TOPICAL PATCH TD SCH (09:19)
[2017-03-28] MEDS: SULFAMETHOXAZOLE/TRIMETHOPRIM 800MG/160MG D.S. TABLET PO SCH (09:19)
[2017-03-28] MEDS: ARTIFICIAL TEARS (POLYVINYL ALCOHOL 1.4%) OPTH DROPS OU SCH (09:20)
[2017-03-28 10:28] VITALS: BP 120/90; PULSE 95; TEMP 96
== END 2017-03-28 09:27 | disposition home or self-care (01) | DRG 773 ==
LOC: YASAS 08:24 → Y6N 12:17
PROVIDERS: ADMIT Internal Medicine Addiction Medicine; ATTEND Internal Medicine Addiction Medicine
PROC: HZ2ZZZZ Detoxification Services for Substance Abuse Treatment (ICD-10-PCS; principal; 2017-03-28)
DX: F11.23 Opioid dependence with withdrawal (principal); F14.20 Cocaine dependence, uncomplicated; F17.213 Nicotine dependence, cigarettes, with withdrawal; J45.20 Mild intermittent asthma, uncomplicated; B18.2 Chronic viral hepatitis C; Z21 Asymptomatic human immunodeficiency virus [HIV] infection status
CPT/HCPCS: 36415; 80053; 81003; 81015; 85027; 86593; 93005; 93010

== ENCOUNTER 2017-05-24 10:42 | Inpatient (IN) | payer OTHER ==
[2017-05-24 12:31] VITALS: BMI 37.3
--- NOTE | 2017-05-24 14:31 | HP ---
COWS - Scale Resting Pulse: 1= [place] 81-100 Sweatin=Flushed/Facial Moisture Restless Observation: 1= Difficult to Sit Still Pupil Size: 0= Normal to Room Light Bone or Joint Aches: 2= Severe Diffuse Aches Runny Nose/ Eye Tearin= Runny Nose/Eyes GI Upset > 30mins: 2= Nausea/Diarrhea Tremor Observation: 2= Slight Tremor Visible Yawning Observation: 2= >3x During Session Anxiety or Irritability: 2=Irritable/Anxious Goose Flesh Skin: 0=Smooth Skin COWS Score: 16 Admission ROS S - HPI Chief Complaint: I am here to detox from heroin and cocaine. Allergies/Adverse Reactions: Allergies Allergy/AdvReac Type Severity Reaction Status Date / Time aspirin Allergy Severe Hives Verified 05/24/17 14:12 History of Present Illness: pt is a 56yr old male with a history of heroin dependence seeking detox for treatment. Exam Limitations: No Limitations - Ebola screening Have you traveled outside of the country in the last 21 days: No Have you had contact with anyone from an Ebola affected area: No Have you been sick,other than usual withdrawal symptoms: No Do you have a fever: No - Review of Systems Constitutional: No Symptoms Reported EENT: reports: No Symptoms Reported Respiratory: reports: No Symptoms reported Cardiac: reports: No Symptoms Reported GI: reports: Constipated, Poor Appetite, Poor Fluid Intake : reports: No Symptoms Reported Musculoskeletal: reports: No Symptoms Reported, Other (neuropathy to legs at times) Integumentary: reports: Sweating Neuro: reports: Tingling, Tremors Endocrine: reports: Excessive Sweating, Flushing, Intolerance to Cold, Intolerance to Heat Hematology: reports: No Symptoms Reported Psychiatric: reports: No Sypmtoms Reported, Judgement Intact, Mood/Affect Appropiate, Orientated x3, Agitated, Anxious, Depressed Other Systems: Reviewed and Negative Patient History - Patient Medical History Hx Anemia: No Hx Asthma: Yes Hx Chronic Obstructive Pulmonary Disease (COPD): No Hx Cancer: No Hx Cardiac Disorders: No Hx Congestive Heart Failure: No Hx Hypertension: Yes Hx Hypercholesterolemia: No Hx Pacemaker: No HX Cerebrovascular Accident: No Hx Seizures: No Hx Dementia: No Hx Diabetes: No Hx Gastrointestinal Disorders: No Hx Liver Disease: Yes (HEP C) Hx Genitourinary Disorders: No Hx Sexually Transmitted Disorders: No Hx Renal Disease (ESRD): No Hx Thyroid Disease: No Hx Human Immunodeficiency Virus (HIV): Yes (since 1991;ON MED ) Hx Hepatitis C: Yes (TREATED) Hx Depression: No Hx Suicide Attempt: No (denies) Hx Bipolar Disorder: No Hx Schizophrenia: No - Patient Surgical History Past Surgical History: Yes Hx Neurologic Surgery: No Hx Cataract Extraction: No Hx Cardiac Surgery: No Hx Lung Surgery: No Hx Breast Surgery: No Hx Breast Biopsy: No Hx Abdominal Surgery: No Hx Appendectomy: Yes Hx Cholecystectomy: No Hx Genitourinary Surgery: No Hx Section: No Hx Orthopedic Surgery: No Other Surgical History: R index finger tip amputated at age 7. Anesthesia Reaction: No - PPD History Previous Implant?: Yes Documented Results: Positive w/o proof Results: CXR NEG 12/19 PPD to be Administered?: No - Reproductive History Patient is a Female of Child Bearing Age (11 -55 yrs old): No - Smoking Cessation Smoking history: Current every day smoker Have you smoked in the past 12 months: Yes Aproximately how many cigarettes per day: 5 Cigars Per Day: 0 Hx Chewing Tobacco Use: No Initiated information on smoking cessation: Yes 'Breaking Loose' booklet given: 05/24/17 - Substance & Tx. History Hx Alcohol Use: No Hx Substance Use: Yes Substance Use Type: Cocaine, Heroin Hx Substance Use Treatment: Yes (last detox [facility] 02/2017) - Substances Abused Heroin Route: Injection Frequency: Daily Amount used: 7 bags Age of first use: 18 Date of Last Use: 05/24/17 Cocaine Route: Injection Frequency: Daily Amount used: $20 Age of first use: 17 Date of Last Use: 05/24/17 Family Disease History - Family Disease History Family Disease History: CA: Mother (cervical cancer,cva,), Other: Father (alcohol,) Admission Physical Exam BHS - Vital Signs Vital Signs: Vital Signs - 24 hr 05/24/17 12:28 Temperature 96 F L Pulse Rate 92 H Respiratory 20 Rate Blood Pressure 141/85 - Physical General Appearance: Yes: Appropriately Dressed, Moderate Distress, Tremorous, Irritable, Sweating, Anxious HEENTM: Yes: Hearing grossly Normal, Normal Voice, Nasal Congestion Respiratory: Yes: Lungs Clear, Normal Breath Sounds, No Respiratory Distress Neck: Yes: No masses,lesions,Nodules Breast: Yes: Within Normal Limits Cardiology: Yes: Regular Rhythm, Regular Rate, S1, S2 Abdominal: Yes: Normal Bowel Sounds, Non Tender, Soft Genitourinary: Yes: Within Normal Limits Back: Yes: Normal Inspection Musculoskeletal: Yes: full range of Motion Extremities: Yes: Normal Capillary Refill, Non-Tender, Tremors Neurological: Yes: Fully Oriented, Alert, Normal Response Integumentary: Yes: Normal Color, Track Carreon Lymphatic: Yes: Within Normal Limits - Diagnostic (1) Asthma Current Visit: Yes Status: Chronic Qualifiers: Asthma severity: mild intermittent Asthma complication type: uncomplicated Qualified Code(s): J45.20 - Mild intermittent asthma, uncomplicated (2) Cocaine dependence, uncomplicated Current Visit: Yes Status: Chronic (3) HIV (human immunodeficiency virus infection) Current Visit: Yes Status: Chronic Comment: pt is compliant with his medication; pt brougt in his own med. (4) Hepatitis C antibody positive in blood Current Visit: Yes Status: Chronic (5) Nicotine dependence Current Visit: Yes Status: Chronic Qualifiers: Nicotine product type: cigarettes Substance use status: uncomplicated Qualified Code(s): F17.210 - Nicotine dependence, cigarettes, uncomplicated (6) Opioid dependence with withdrawal Current Visit: Yes Status: Chronic Cleared for Admission [facility] - Detox or Rehab [facility] Level of Care: Medically Managed Detox Regimen/Protocol: Methadone [facility] Breath Alcohol Content Breath Alcohol Content: 0 Urine Drug Screen - Results Drug Screen Negative: No Urine Drug Screen Results: REMIGIO-Cocaine, OPI-Opiates, MTD-Methadone
[2017-05-24] MEDS ORDERED: MAGNESIUM CITRATE 300 ML BOTTLE PO PRN (14:38)
[2017-05-24] MEDS ORDERED: hydrOXYzine PAMOATE 50 MG CAPSULE (FP) PO PRN (14:38)
[2017-05-24] MEDS ORDERED: IBUPROFEN 400 MG TABLET (FP) PO PRN (14:38)
[2017-05-24] MEDS ORDERED: guaiFENesin/D-METHORPHAN HB 10 ML UNIT-DOSE CUPS PO PRN (14:38)
[2017-05-24] MEDS ORDERED: ACETAMINOPHEN 325 MG TABLET (FP) PO PRN (14:38)
[2017-05-24] MEDS ORDERED: MAGNESIUM HYDROX 2400MG/30ML ORAL SUSPENSION 30 ML CUP PO PRN (14:38)
[2017-05-24] MEDS ORDERED: NICOTINE POLACRILEX 4 MG GUM BUC PRN (14:38)
[2017-05-24] MEDS ORDERED: MAG HYDROX/AL HYDROX/SIMETH 30 ML UNIT-DOSE CUP PO PRN (14:38)
[2017-05-24] MEDS ORDERED: LOPERAMIDE HCL 2 MG CAPSULE PO PRN (14:38)
[2017-05-24] MEDS ORDERED: MENTHOL/PHENOL 1 EACH UD MM PRN (14:38)
[2017-05-24] MEDS ORDERED: P-EPHED 60MG/TRIPROLIDI 2.5MG TABLET PO PRN (14:38)
[2017-05-24] MEDS ORDERED: ALBUTEROL SO4 18 GM HFA INHALER IH PRN (14:42)
[2017-05-24] MEDS ORDERED: METHADONE HCL 10 MG TABLET (FOR DETOX USE ONLY) PO ONE ×2 (15:23→23:00)
[2017-05-24] MEDS: diazePAM 5 MG TABLET PO PRN ×2 (15:41→22:04)
[2017-05-24 17:13] LABS: URINE APPEARANCE SLCLOUDY; URINE BILIRUBIN NEGATIVE (NEGATIVE); URINE BLOOD NEGATIVE (NEGATIVE); URINE COLOR YELLOW; URINE GLUCOSE (UA) NEGATIVE (NEGATIVE); URINE KETONE NEGATIVE (NEGATIVE); URINE LEUK ESTERASE NEGATIVE (NEGATIVE); URINE NITRITE NEGATIVE (NEGATIVE); URINE UROBILINOGEN NEGATIVE mg/dL (0.2-1.0)
[2017-05-24 17:19] LABS: URINE PROTEIN 1+ (NEGATIVE)
[2017-05-24 17:48] LABS: URINE MUCUS RARE; URINE RBC 8 /hpf (0-3); URINE WBC 1 /hpf (3-5)
[2017-05-24] MEDS: ARTIFICIAL TEARS (POLYVINYL ALCOHOL 1.4%) OPTH DROPS OU SCH ×2 (18:06→22:07)
[2017-05-24] MEDS: ABACAVIR SULFATE 300 MG TABLET PO SCH (22:03)
[2017-05-24] MEDS: THIAMINE HCL 100 MG TABLET (FP) PO SCH (22:03)
[2017-05-24] MEDS: PATIENT'S OWN MEDICATION (NON-FORMULARY) (Darunavir/Cobicistat [Prezcobix 800 Mg-150 Mg Ta PO SCH (22:04)
[2017-05-24] MEDS: TENOFOVIR DISOPROXIL FUMARATE 300 MG TABLET PO SCH (22:04)
[2017-05-24] MEDS: BISACODYL 5 MG TABLET.DR (FP) PO PRN (22:35)
[2017-05-25] MEDS: diazePAM 5 MG TABLET PO PRN ×4 (06:14→22:18)
[2017-05-25] MEDS: BISACODYL 5 MG TABLET.DR (FP) PO PRN (06:16)
[2017-05-25] MEDS ORDERED: METHADONE HCL 10 MG TABLET (FOR DETOX USE ONLY) PO ONE (10:00)
[2017-05-25 10:14] LABS: MCH 26.8 pg (25.7-33.7); MCHC 32.8 g/dl (32.0-35.9); MEAN CELL VOLUME 81.7 fl (80-96); MEAN PLT VOLUME 10.3 fl (7.5-11.1); PLATELET COUNT 194 K/MM3 (134-434); RDW 14.8 % (11.9-15.9); WHITE BLOOD COUNT 7.5 K/mm3 (4.0-10.0)
[2017-05-25] MEDS: PRENATAL VITAMINS W/ FOLIC ACID TABLET (FP) PO SCH (10:17)
[2017-05-25] MEDS: LISINOPRIL 10 MG TABLET (FP) PO SCH (10:18)
[2017-05-25] MEDS: ARTIFICIAL TEARS (POLYVINYL ALCOHOL 1.4%) OPTH DROPS OU SCH ×4 (10:18→22:15)
[2017-05-25 10:38] LABS: ALBUMIN 3.6 g/dl (3.4-5.0); ALK PHOS 100 U/L (45-117); ANION GAP 7 (8-16); BILIRUBIN,TOTAL 0.3 mg/dL (0.2-1.0); CALCIUM 9.5 mg/dL (8.5-10.1); CO2 26 mmol/L (21-32); CREATININE 1.3 mg/dL (0.7-1.3); GLUCOSE,RANDOM 94 mg/dL (74-106); SGOT/AST 19 U/L (15-37); SGPT/ALT 22 U/L (12-78); TOT PROT 7.9 g/dl (6.4-8.2)
[2017-05-25] MEDS: NICOTINE 21 MG/24 HOURS TOPICAL PATCH TD SCH (11:21)
[2017-05-25] MEDS: TOLNAFTATE 1% CREAM 15 GM TUBE TP SCH ×3 (11:21→22:12)
--- NOTE | 2017-05-25 12:42 | PN ---
BHS COWS - Scale Resting Pulse: 1= [place] 81-100 Sweatin= Chills/Flushing Restless Observation: 3= Extraneous Movement Pupil Size: 0= Normal to Room Light Bone or Joint Aches: 2= Severe Diffuse Aches Runny Nose/ Eye Tearin= Nasal Congestion GI Upset > 30mins: 1= Stomach Cramp Tremor Observation of Outstretched Hands: 1= Tremor Marcy, Not Seen Yawning Observation: 1= 1-2x During Session Anxiety or Irritability: 2=Irritable/Anxious Goose Flesh Skin: 0=Smooth Skin COWS Score: 13 BHS Progress Note (SOAP) Subjective: ANXIETY,SWEATS,FATIGUE. C/O ITCHY DRY FEET Objective: 05/25/17 12:42 Vital Signs Temperature 97.2 F L 05/25/17 09:43 Pulse Rate 84 05/25/17 09:43 Respiratory Rate 20 05/25/17 09:43 Blood Pressure 123/70 05/25/17 09:43 O2 Sat by Pulse Oximetry (%) Laboratory Last Values WBC 7.5 K/mm3 (4.0-10.0) 05/25/17 07:30 RBC 4.79 M/mm3 (4.00-5.60) 05/25/17 07:30 Hgb 12.8 GM/dL (11.7-16.9) 05/25/17 07:30 Hct 39.1 % (35.4-49) 05/25/17 07:30 MCV 81.7 fl (80-96) 05/25/17 07:30 MCH 26.8 pg (25.7-33.7) 05/25/17 07:30 MCHC 32.8 g/dl (32.0-35.9) 05/25/17 07:30 RDW 14.8 % (11.9-15.9) 05/25/17 07:30 Plt Count 194 K/MM3 (134-434) D 05/25/17 07:30 MPV 10.3 fl (7.5-11.1) 05/25/17 07:30 Sodium 137 mmol/L (136-145) 05/25/17 07:30 Potassium 4.5 mmol/L (3.5-5.1) 05/25/17 07:30 Chloride 104 mmol/L (98-107) 05/25/17 07:30 Carbon Dioxide 26 mmol/L (21-32) 05/25/17 07:30 Anion Gap 7 (8-16) L 05/25/17 07:30 BUN 17 mg/dL (7-18) D 05/25/17 07:30 Creatinine 1.3 mg/dL (0.7-1.3) 05/25/17 07:30 Creat Clearance w eGFR 57.10 (>60) 05/25/17 07:30 Random Glucose 94 mg/dL (74-106) 05/25/17 07:30 Calcium 9.5 mg/dL (8.5-10.1) 05/25/17 07:30 Total Bilirubin 0.3 mg/dL (0.2-1.0) D 05/25/17 07:30 AST 19 U/L (15-37) D 05/25/17 07:30 ALT 22 U/L (12-78) D 05/25/17 07:30 Alkaline Phosphatase 100 U/L (45-117) 05/25/17 07:30 Total Protein 7.9 g/dl (6.4-8.2) 05/25/17 07:30 Albumin 3.6 g/dl (3.4-5.0) 05/25/17 07:30 Urine Color Yellow 05/24/17 15:00 Urine Appearance Slcloudy 05/24/17 15:00 Urine pH 5.0 (5.0-8.0) D 05/24/17 15:00 Ur Specific [place] >= 1.030 (1.005-1.025) H 05/24/17 15:00 Urine Protein 1+ (NEGATIVE) H 05/24/17 15:00 Urine Glucose (UA) Negative (NEGATIVE) 05/24/17 15:00 Urine Ketones Negative (NEGATIVE) 05/24/17 15:00 Urine Blood Negative (NEGATIVE) 05/24/17 15:00 Urine Nitrite Negative (NEGATIVE) 05/24/17 15:00 Urine Bilirubin Negative (NEGATIVE) 05/24/17 15:00 Urine Urobilinogen Negative mg/dL (0.2-1.0) 05/24/17 15:00 Urine RBC 8 /hpf (0-3) 05/24/17 15:00 Urine WBC 1 /hpf (3-5) 05/24/17 15:00 Urine Mucus Rare 05/24/17 15:00 RPR Titer Nonreactive (NONREACTIVE) 05/25/17 07:30 Assessment: 05/25/17 12:43 WITHDRAWAL SX TINEA PEDIS Plan: CONTINUE DETOX TINACTIN CREAM DIRECTED.
--- NOTE | 2017-05-25 16:01 | EKG ---
Test Reason : Blood Pressure : / mmHG Vent. Rate : 078 BPM Atrial Rate : 078 BPM P-R Int : 194 ms QRS Dur : 088 ms QT Int : 392 ms P-R-T Axes : 052 -31 045 degrees QTc Int : 446 ms NORMAL SINUS RHYTHM POSSIBLE LEFT ATRIAL ENLARGEMENT LEFT AXIS DEVIATION ABNORMAL ECG WHEN COMPARED WITH ECG OF 23-MAR-2017 12:59, NO SIGNIFICANT CHANGE WAS FOUND Confirmed by DOM RODRIGUEZ, ANDRADE ([id number]) on 05/25/2017 4:00:52 PM Referred By: Crow Hutchison Confirmed By:ANDRADE FERNANDES MD
[2017-05-25] MEDS: THIAMINE HCL 100 MG TABLET (FP) PO SCH (22:12)
[2017-05-25] MEDS: ABACAVIR SULFATE 300 MG TABLET PO SCH (22:13)
[2017-05-25] MEDS: TENOFOVIR DISOPROXIL FUMARATE 300 MG TABLET PO SCH (22:13)
[2017-05-25] MEDS: diphenhydrAMINE HCL 50 MG CAPSULE PO PRN (22:14)
[2017-05-25] MEDS: PATIENT'S OWN MEDICATION (NON-FORMULARY) (Darunavir/Cobicistat [Prezcobix 800 Mg-150 Mg Ta PO SCH (22:14)
[2017-05-26] MEDS: diazePAM 5 MG TABLET PO PRN ×3 (06:05→19:12)
[2017-05-26] MEDS ORDERED: METHADONE HCL 5 MG TABLET (FOR DETOX USE ONLY) PO ONE (10:00)
[2017-05-26] MEDS: ARTIFICIAL TEARS (POLYVINYL ALCOHOL 1.4%) OPTH DROPS OU SCH ×4 (10:02→22:06)
[2017-05-26] MEDS: PRENATAL VITAMINS W/ FOLIC ACID TABLET (FP) PO SCH (10:03)
[2017-05-26] MEDS: NICOTINE 21 MG/24 HOURS TOPICAL PATCH TD SCH (10:04)
[2017-05-26] MEDS: TOLNAFTATE 1% CREAM 15 GM TUBE TP SCH ×2 (10:04→22:08)
[2017-05-26] MEDS: LISINOPRIL 10 MG TABLET (FP) PO SCH (10:04)
--- NOTE | 2017-05-26 11:38 | PN ---
S COWS - Scale Resting Pulse: 0= [place] 80 or Below Sweatin= Chills/Flushing Restless Observation: 1= Difficult to Sit Still Pupil Size: 0= Normal to Room Light Bone or Joint Aches: 1= Mild Discomfort Runny Nose/ Eye Tearin= Runny Nose/Eyes GI Upset > 30mins: 1= Stomach Cramp Tremor Observation of Outstretched Hands: 4= Gross Tremor/Twitching Yawning Observation: 1= 1-2x During Session Anxiety or Irritability: 2=Irritable/Anxious Goose Flesh Skin: 3=Piloerection COWS Score: 16 S Progress Note (SOAP) Subjective: Constipation, Tremors, body Aches. Objective: PT. A & O X 3. NO ACUTE DISTRESS. 05/26/17 11:35 Vital Signs Temperature 97.4 F L 05/26/17 10:43 Pulse Rate 75 05/26/17 10:43 Respiratory Rate 18 05/26/17 10:43 Blood Pressure 137/98 05/26/17 10:43 O2 Sat by Pulse Oximetry (%) Laboratory Tests 05/24/17 05/25/17 05/25/17 15:00 07:30 07:30 WBC 7.5 RBC 4.79 Hgb 12.8 Hct 39.1 MCV 81.7 MCH 26.8 MCHC 32.8 RDW 14.8 Plt Count 194 D MPV 10.3 Sodium 137 Potassium 4.5 Chloride 104 Carbon Dioxide 26 Anion Gap 7 L BUN 17 D Creatinine 1.3 Creat Clearance w eGFR 57.10 Random Glucose 94 Calcium 9.5 Total Bilirubin 0.3 D AST 19 D ALT 22 D Alkaline Phosphatase 100 Total Protein 7.9 Albumin 3.6 Urine Color Yellow Urine Appearance Slcloudy Urine pH 5.0 D Ur Specific [place] >= 1.030 H Urine Protein 1+ H Urine Glucose (UA) Negative Urine Ketones Negative Urine Blood Negative Urine Nitrite Negative Urine Bilirubin Negative Urine Urobilinogen Negative Urine RBC 8 Urine WBC 1 Urine Mucus Rare RPR Titer 05/25/17 07:30 WBC RBC Hgb Hct MCV MCH MCHC RDW Plt Count MPV Sodium Potassium Chloride Carbon Dioxide Anion Gap BUN Creatinine Creat Clearance w eGFR Random Glucose Calcium Total Bilirubin AST ALT Alkaline Phosphatase Total Protein Albumin Urine Color Urine Appearance Urine pH Ur Specific [place] Urine Protein Urine Glucose (UA) Urine Ketones Urine Blood Urine Nitrite Urine Bilirubin Urine Urobilinogen Urine RBC Urine WBC Urine Mucus RPR Titer Nonreactive LABS NOTED. Assessment: 05/26/17 11:35 WITHDRAWAL SYMPTOMS. Plan: CONTINUE DETOX. REPEAT UA FOR ADMISSION ABNORMALITIES. INCREASE DAILY PO FLUID INTAKE. COLACE, PRN DULCOLAX FOR CONSTIPATION.
[2017-05-26] MEDS: DOCUSATE SODIUM 100 MG CAPSULE (FP) PO SCH ×2 (14:02→22:07)
[2017-05-26 17:00] LABS: URINE APPEARANCE CLEAR; URINE BILIRUBIN NEGATIVE (NEGATIVE); URINE COLOR LT. YELLOW; URINE GLUCOSE (UA) NEGATIVE (NEGATIVE); URINE KETONE NEGATIVE (NEGATIVE); URINE LEUK ESTERASE NEGATIVE (NEGATIVE); URINE NITRITE NEGATIVE (NEGATIVE); URINE PROTEIN TRACE (NEGATIVE); URINE UROBILINOGEN 0.2 mg/dL (0.2-1.0)
[2017-05-26 17:17] LABS: URINE BLOOD 1+ (NEGATIVE)
[2017-05-26 18:08] LABS: URINE RBC 7 /hpf (0-3); URINE WBC 1 /hpf (3-5)
[2017-05-26] MEDS: PATIENT'S OWN MEDICATION (NON-FORMULARY) (Darunavir/Cobicistat [Prezcobix 800 Mg-150 Mg Ta PO SCH (22:06)
[2017-05-26] MEDS: diphenhydrAMINE HCL 50 MG CAPSULE PO PRN (22:07)
[2017-05-26] MEDS: TENOFOVIR DISOPROXIL FUMARATE 300 MG TABLET PO SCH (22:07)
[2017-05-26] MEDS: THIAMINE HCL 100 MG TABLET (FP) PO SCH (22:07)
[2017-05-26] MEDS: ABACAVIR SULFATE 300 MG TABLET PO SCH (22:08)
[2017-05-27] MEDS: BISACODYL 5 MG TABLET.DR (FP) PO PRN (05:48)
[2017-05-27] MEDS: diazePAM 5 MG TABLET PO PRN ×2 (05:48→10:13)
[2017-05-27] MEDS ORDERED: METHADONE HCL 5 MG TABLET (FOR DETOX USE ONLY) PO ONE (10:00)
[2017-05-27] MEDS: ARTIFICIAL TEARS (POLYVINYL ALCOHOL 1.4%) OPTH DROPS OU SCH ×4 (10:12→22:43)
[2017-05-27] MEDS: PRENATAL VITAMINS W/ FOLIC ACID TABLET (FP) PO SCH (10:13)
[2017-05-27] MEDS: DOCUSATE SODIUM 100 MG CAPSULE (FP) PO SCH ×2 (10:13→22:41)
[2017-05-27] MEDS: LISINOPRIL 10 MG TABLET (FP) PO SCH (10:13)
[2017-05-27] MEDS: TOLNAFTATE 1% CREAM 15 GM TUBE TP SCH ×2 (10:13→22:43)
[2017-05-27] MEDS: NICOTINE 21 MG/24 HOURS TOPICAL PATCH TD SCH (10:13)
--- NOTE | 2017-05-27 16:24 | PN ---
BHS Progress Note (SOAP) Subjective: Constipation, Fatigue. Objective: PT. A & O X 3. NO ACUTE DISTRESS. PT. DENIES CHEST PAIN. 05/27/17 16:20 Vital Signs Temperature 97.2 F L 05/27/17 15:20 Pulse Rate 95 H 05/27/17 15:20 Respiratory Rate 18 05/27/17 15:20 Blood Pressure 127/84 05/27/17 15:20 O2 Sat by Pulse Oximetry (%) Laboratory Tests 05/24/17 05/25/17 05/25/17 15:00 07:30 07:30 WBC 7.5 RBC 4.79 Hgb 12.8 Hct 39.1 MCV 81.7 MCH 26.8 MCHC 32.8 RDW 14.8 Plt Count 194 D MPV 10.3 Sodium 137 Potassium 4.5 Chloride 104 Carbon Dioxide 26 Anion Gap 7 L BUN 17 D Creatinine 1.3 Creat Clearance w eGFR 57.10 Random Glucose 94 Calcium 9.5 Total Bilirubin 0.3 D AST 19 D ALT 22 D Alkaline Phosphatase 100 Total Protein 7.9 Albumin 3.6 Urine Color Yellow Urine Appearance Slcloudy Urine pH 5.0 D Ur Specific [place] >= 1.030 H Urine Protein 1+ H Urine Glucose (UA) Negative Urine Ketones Negative Urine Blood Negative Urine Nitrite Negative Urine Bilirubin Negative Urine Urobilinogen Negative Urine RBC 8 Urine WBC 1 Urine Mucus Rare RPR Titer 05/25/17 05/26/17 07:30 15:00 WBC RBC Hgb Hct MCV MCH MCHC RDW Plt Count MPV Sodium Potassium Chloride Carbon Dioxide Anion Gap BUN Creatinine Creat Clearance w eGFR Random Glucose Calcium Total Bilirubin AST ALT Alkaline Phosphatase Total Protein Albumin Urine Color Lt. yellow Urine Appearance Clear Urine pH 6.0 Ur Specific [place] 1.025 Urine Protein Trace H Urine Glucose (UA) Negative Urine Ketones Negative Urine Blood 1+ H Urine Nitrite Negative Urine Bilirubin Negative Urine Urobilinogen 0.2 Urine RBC 7 Urine WBC 1 Urine Mucus RPR Titer Nonreactive LABS NOTED. Assessment: 05/27/17 16:21 WITHDRAWAL SYMPTOMS. Plan: CONTINUE DETOX. INCREASE DAILY PO FLUID INTAKE.
[2017-05-27] MEDS: ABACAVIR SULFATE 300 MG TABLET PO SCH (22:41)
[2017-05-27] MEDS: THIAMINE HCL 100 MG TABLET (FP) PO SCH (22:42)
[2017-05-27] MEDS: TENOFOVIR DISOPROXIL FUMARATE 300 MG TABLET PO SCH (22:42)
[2017-05-27] MEDS: PATIENT'S OWN MEDICATION (NON-FORMULARY) (Darunavir/Cobicistat [Prezcobix 800 Mg-150 Mg Ta PO SCH (22:42)
[2017-05-28] MEDS ORDERED: METHADONE HCL 10 MG TABLET (FOR DETOX USE ONLY) PO ONE (10:00)
[2017-05-28] MEDS: ARTIFICIAL TEARS (POLYVINYL ALCOHOL 1.4%) OPTH DROPS OU SCH ×4 (10:03→22:22)
[2017-05-28] MEDS: PRENATAL VITAMINS W/ FOLIC ACID TABLET (FP) PO SCH (10:04)
[2017-05-28] MEDS: LISINOPRIL 10 MG TABLET (FP) PO SCH (10:05)
[2017-05-28] MEDS: TOLNAFTATE 1% CREAM 15 GM TUBE TP SCH ×2 (10:05→22:20)
[2017-05-28] MEDS: DOCUSATE SODIUM 100 MG CAPSULE (FP) PO SCH ×2 (10:05→22:20)
[2017-05-28] MEDS: NICOTINE 21 MG/24 HOURS TOPICAL PATCH TD SCH (10:05)
--- NOTE | 2017-05-28 15:25 | PN ---
BHS Progress Note (SOAP) Subjective: Sweating, nausea, anxious Objective: 05/28/17 15:21 Last Vital Signs Temp Pulse Resp BP Pulse Ox 96.7 F L 87 18 145/97 05/28/17 13:56 05/28/17 13:56 05/28/17 13:56 05/28/17 13:56 Laboratory Tests 05/24/17 05/25/17 05/25/17 15:00 07:30 07:30 WBC 7.5 RBC 4.79 Hgb 12.8 Hct 39.1 MCV 81.7 MCH 26.8 MCHC 32.8 RDW 14.8 Plt Count 194 D MPV 10.3 Sodium 137 Potassium 4.5 Chloride 104 Carbon Dioxide 26 Anion Gap 7 L BUN 17 D Creatinine 1.3 Creat Clearance w eGFR 57.10 Random Glucose 94 Calcium 9.5 Total Bilirubin 0.3 D AST 19 D ALT 22 D Alkaline Phosphatase 100 Total Protein 7.9 Albumin 3.6 Urine Color Yellow Urine Appearance Slcloudy Urine pH 5.0 D Ur Specific [place] >= 1.030 H Urine Protein 1+ H Urine Glucose (UA) Negative Urine Ketones Negative Urine Blood Negative Urine Nitrite Negative Urine Bilirubin Negative Urine Urobilinogen Negative Urine RBC 8 Urine WBC 1 Urine Mucus Rare RPR Titer 05/25/17 05/26/17 07:30 15:00 WBC RBC Hgb Hct MCV MCH MCHC RDW Plt Count MPV Sodium Potassium Chloride Carbon Dioxide Anion Gap BUN Creatinine Creat Clearance w eGFR Random Glucose Calcium Total Bilirubin AST ALT Alkaline Phosphatase Total Protein Albumin Urine Color Lt. yellow Urine Appearance Clear Urine pH 6.0 Ur Specific [place] 1.025 Urine Protein Trace H Urine Glucose (UA) Negative Urine Ketones Negative Urine Blood 1+ H Urine Nitrite Negative Urine Bilirubin Negative Urine Urobilinogen 0.2 Urine RBC 7 Urine WBC 1 Urine Mucus RPR Titer Nonreactive Labs noted: GFR 57.10, UA: abnormal Assessment: 05/28/17 15:23 Withdrawal symptoms Noted with prerenal azotemia and abnormal UA Plan: Continue detox Prerenal azotemia: encouraged to drink lots of water, water pitcher ordered Abnormal UA: repeat UA
[2017-05-28 21:19] LABS: URINE APPEARANCE CLEAR; URINE BILIRUBIN NEGATIVE (NEGATIVE); URINE BLOOD NEGATIVE (NEGATIVE); URINE COLOR LTYELLOW; URINE GLUCOSE (UA) NEGATIVE (NEGATIVE); URINE KETONE NEGATIVE (NEGATIVE); URINE LEUK ESTERASE NEGATIVE (NEGATIVE); URINE NITRITE NEGATIVE (NEGATIVE); URINE PROTEIN NEGATIVE (NEGATIVE); URINE UROBILINOGEN NEGATIVE mg/dL (0.2-1.0)
[2017-05-28] MEDS: ABACAVIR SULFATE 300 MG TABLET PO SCH (22:20)
[2017-05-28] MEDS: diphenhydrAMINE HCL 50 MG CAPSULE PO PRN (22:20)
[2017-05-28] MEDS: THIAMINE HCL 100 MG TABLET (FP) PO SCH (22:20)
[2017-05-28] MEDS: PATIENT'S OWN MEDICATION (NON-FORMULARY) (Darunavir/Cobicistat [Prezcobix 800 Mg-150 Mg Ta PO SCH (22:20)
[2017-05-28] MEDS: TENOFOVIR DISOPROXIL FUMARATE 300 MG TABLET PO SCH (22:20)
[2017-05-28] MEDS: BISACODYL 5 MG TABLET.DR (FP) PO PRN (22:20)
[2017-05-29] MEDS ORDERED: METHADONE HCL 5 MG TABLET (FOR DETOX USE ONLY) PO ONE (06:00)
[2017-05-29 06:20] VITALS: BP 137/92; PULSE 80; TEMP 97.1
--- NOTE | 2017-05-29 09:02 | DS ---
[facility] Detox Discharge Summary Admission Date: 05/24/17 Discharge Date: 05/29/17 - History Present History: Cocaine Dependence, Opioid Dependence Pertinent Past History: asthma, HVI, nicotine dependence, anxiety, depression, insomnia - Physical Exam Results Vital Signs: Vital Signs Temperature 97.1 F L 05/29/17 06:19 Pulse Rate 80 05/29/17 06:19 Respiratory Rate 16 05/29/17 06:19 Blood Pressure 137/92 05/29/17 06:19 O2 Sat by Pulse Oximetry (%) Laboratory Tests 05/24/17 05/25/17 05/25/17 15:00 07:30 07:30 WBC 7.5 RBC 4.79 Hgb 12.8 Hct 39.1 MCV 81.7 MCH 26.8 MCHC 32.8 RDW 14.8 Plt Count 194 D MPV 10.3 Sodium 137 Potassium 4.5 Chloride 104 Carbon Dioxide 26 Anion Gap 7 L BUN 17 D Creatinine 1.3 Creat Clearance w eGFR 57.10 Random Glucose 94 Calcium 9.5 Total Bilirubin 0.3 D AST 19 D ALT 22 D Alkaline Phosphatase 100 Total Protein 7.9 Albumin 3.6 Urine Color Yellow Urine Appearance Slcloudy Urine pH 5.0 D Ur Specific [place] >= 1.030 H Urine Protein 1+ H Urine Glucose (UA) Negative Urine Ketones Negative Urine Blood Negative Urine Nitrite Negative Urine Bilirubin Negative Urine Urobilinogen Negative Urine RBC 8 Urine WBC 1 Urine Mucus Rare RPR Titer 05/25/17 05/26/17 05/28/17 07:30 15:00 17:25 WBC RBC Hgb Hct MCV MCH MCHC RDW Plt Count MPV Sodium Potassium Chloride Carbon Dioxide Anion Gap BUN Creatinine Creat Clearance w eGFR Random Glucose Calcium Total Bilirubin AST ALT Alkaline Phosphatase Total Protein Albumin Urine Color Lt. yellow Ltyellow Urine Appearance Clear Clear Urine pH 6.0 6.0 Ur Specific [place] 1.025 Urine Protein Trace H Negative Urine Glucose (UA) Negative Negative Urine Ketones Negative Negative Urine Blood 1+ H Negative Urine Nitrite Negative Negative Urine Bilirubin Negative Negative Urine Urobilinogen 0.2 Negative Urine RBC 7 Urine WBC 1 Urine Mucus RPR Titer Nonreactive Pertinent Admission Physical Exam Findings: withdrawal sx - Treatment Hospital Course: Detox Protocol Followed, Detoxed Safely, Responded well, Discharged Condition Good, Rehab Referral Accepted - Medication Discharge Medications: Ambulatory Orders Albuterol Sulfate Inhaler - [Ventolin HFA Inhaler -] 2 inh PO Q4H PRN #1 canister 09/28/15 Abacavir Sulfate [Ziagen -] 600 mg PO HS 12/07/16 Tenofovir Disoproxil Fumarate [Viread -] 300 mg PO HS 12/07/16 Darunavir/Cobicistat [Prezcobix 800 mg-150 mg Tablet] 1 each PO HS 03/23/17 Lisinopril [Prinivil] 10 mg PO DAILY 03/23/17 Bisacodyl [Bisacodyl -] 5 mg PO DAILY PRN 05/24/17 - Diagnosis (1) Cocaine dependence, uncomplicated Current Visit: Yes Status: Chronic (2) Opioid dependence with withdrawal Current Visit: Yes Status: Chronic (3) Asthma Current Visit: Yes Status: Chronic Qualifiers: Asthma severity: mild intermittent Asthma complication type: uncomplicated Qualified Code(s): J45.20 - Mild intermittent asthma, uncomplicated (4) HIV (human immunodeficiency virus infection) Current Visit: Yes Status: Chronic (5) Hepatitis C antibody positive in blood Current Visit: Yes Status: Chronic (6) Nicotine dependence Current Visit: Yes Status: Chronic Qualifiers: Nicotine product type: cigarettes Substance use status: in withdrawal Qualified Code(s): F17.213 - Nicotine dependence, cigarettes, with withdrawal (7) TB (tuberculosis), treated Current Visit: Yes Status: Chronic - AMA Did Patient Leave Against Medical Advice: No
== END 2017-05-29 09:20 | disposition home or self-care (01) | DRG 773 ==
LOC: YASAS 10:42 → Y3N 14:46
PROVIDERS: ADMIT Internal Medicine; ATTEND Internal Medicine
PROC: HZ2ZZZZ Detoxification Services for Substance Abuse Treatment (ICD-10-PCS; principal; 2017-05-24)
DX: F11.23 Opioid dependence with withdrawal (principal); F14.20 Cocaine dependence, uncomplicated; F17.213 Nicotine dependence, cigarettes, with withdrawal; I10 Essential (primary) hypertension; J45.20 Mild intermittent asthma, uncomplicated; B18.2 Chronic viral hepatitis C; R82.90 Unspecified abnormal findings in urine; R79.89 Other specified abnormal findings of blood chemistry; Z21 Asymptomatic human immunodeficiency virus [HIV] infection status; B35.3 Tinea pedis; Z86.11 Personal history of tuberculosis; Z88.6 Allergy status to analgesic agent
CPT/HCPCS: 36415; 80053; 81003; 81015; 85027; 86593; 93005; 93010

== ENCOUNTER 2019-01-18 11:16 | Inpatient (IN) | payer OTHER ==
[2019-01-18 12:39] VITALS: BMI 38.5
--- NOTE | 2019-01-18 13:33 | HP ---
COWS - Scale Resting Pulse: 0= [place] 80 or Below Sweatin= Chills/Flushing Restless Observation: 1= Difficult to Sit Still Pupil Size: 1= Pupils >than Normal Bone or Joint Aches: 2= Severe Diffuse Aches Runny Nose/ Eye Tearin= Runny Nose/Eyes GI Upset > 30mins: 2= Nausea/Diarrhea Tremor Observation: 0= None Yawning Observation: 1= 1-2x During Session Anxiety or Irritability: 2=Irritable/Anxious Goose Flesh Skin: 0=Smooth Skin COWS Score: 12 CIWA Score - Admission Criteria OASAS Guidelines: Admission for Medically Managed Detox: Requires at least one of the followin. CIWA greater than 12 2. Seizures within the past 24 hours 3. Delirium tremens within the past 24 hours 4. Hallucinations within the past 24 hours 5. Acute intervention needed for co occurring medical disorder 6. Acute intervention needed for co occurring psychiatric disorder 7. Severe withdrawal that cannot be handled at a lower level of care (continued vomiting, continued diarrhea, abnormal vital signs) requiring intravenous medication and/or fluids 8. Admission ROS [facility] Chief Complaint: Heroin/Cocaine withdrawal symptoms. Allergies/Adverse Reactions: Allergies Allergy/AdvReac Type Severity Reaction Status Date / Time aspirin Allergy Severe Hives Verified 01/18/19 12:27 History of Present Illness: PATIENT PRESENTS WITH HEROIN WITHDRAWAL SYMPTOMS. PATIENT IS KNOWN TO [facility] DUE TO PREVIOUS ADMISSIONS, LAST ADMISSION 10/2015. PATIENT STARTED INJECTING HEROIN AT AGE 17, INJECTS 2 BAGS DAILY, LAST USE WAS 2 DAYS AGO. PATIENT BOUGHT NON- PRESCRIBED MTD YESTERDAY TO HELP WITH WITHDRAWAL SX. UDS +MOP, MTD. ISTOP NEGATIVE. PATIENT ALSO SMOKES CRACK./REMIGIO SINCE AGE 16. SMOKES 1 GRAM DAILY, LAST USE WAS 01/16/19. PATIENT HAS HX OF OVERDOSE X 1, BLACKOUT X 1. DENIES HX OF SEIZURES. PMH INCLUDES HIV+ (COMPLIANT WITH TREATMENT), ASTHMA AND HTN. PATIENT DENIES SI/HI, HX OF MENTAL ILLNESS. NO SUICIDE ATTEMPTS. PATIENT ALSO REPORTS GOING TO [facility] ER YESTERDAY FOR LEFT THIGH INNER RASH. HAS HX OF SHINGLES, PRESCRIBED ACYCLOVIR BUT DOES NOT HAVE MEDICATION. Exam Limitations: No Limitations - Ebola screening Have you traveled outside of the country in the last 21 days: No (N) Have you had contact with anyone from an Ebola affected area: No Do you have a fever: No - Review of Systems Constitutional: Chills EENT: reports: Tearing, Nose Congestion Respiratory: reports: No Symptoms reported Cardiac: reports: No Symptoms Reported GI: reports: Diarrhea, Nausea, Poor Fluid Intake : reports: No Symptoms Reported Musculoskeletal: reports: Back Pain, Muscle Pain Integumentary: reports: No Symptoms Reported Neuro: reports: Numbness, Tingling, Other (+ RIGHT FOOT NEUROPATHIC SYMPTOMS) Endocrine: reports: No Symptoms Reported Hematology: reports: No Symptoms Reported Psychiatric: reports: Orientated x3, Anxious Patient History - Patient Medical History Hx Anemia: No Hx Asthma: Yes Hx Chronic Obstructive Pulmonary Disease (COPD): No Hx Cancer: No Hx Cardiac Disorders: No Hx Congestive Heart Failure: No Hx Hypertension: Yes Hx Hypercholesterolemia: No Hx Pacemaker: No HX Cerebrovascular Accident: No Hx Seizures: No Hx Dementia: No Hx Diabetes: No Hx Gastrointestinal Disorders: No Hx Liver Disease: Yes (HEP C, Treated 2015) Hx Genitourinary Disorders: No Hx Sexually Transmitted Disorders: No Hx Renal Disease (ESRD): No Hx Thyroid Disease: No Hx Human Immunodeficiency Virus (HIV): Yes (since 1991;ON MED ) Hx Hepatitis C: Yes (TREATED) Hx Depression: No Hx Suicide Attempt: No (denies) Hx Bipolar Disorder: No Hx Schizophrenia: No - Patient Surgical History Past Surgical History: Yes Hx Neurologic Surgery: No Hx Cataract Extraction: No Hx Cardiac Surgery: No Hx Lung Surgery: No Hx Breast Surgery: No Hx Breast Biopsy: No Hx Abdominal Surgery: No Hx Appendectomy: Yes Hx Cholecystectomy: No Hx Genitourinary Surgery: No Hx Section: No Hx Orthopedic Surgery: No Other Surgical History: R index finger tip amputated at age 7. Anesthesia Reaction: No - PPD History Previous Implant?: Yes Documented Results: Positive w/o proof Results: CXR NEG 12/19 PPD to be Administered?: No - Smoking Cessation Smoking history: Current every day smoker Have you smoked in the past 12 months: Yes Aproximately how many cigarettes per day: 2 Cigars Per Day: 0 Hx Chewing Tobacco Use: No Initiated information on smoking cessation: Yes 'Breaking Loose' booklet given: 01/18/19 - Substance & Tx. History Hx Alcohol Use: No Hx Substance Use: Yes Substance Use Type: Cocaine, Heroin Hx Substance Use Treatment: Yes - Substances abused Heroin Substance route: Injection Frequency: Daily Amount used: 2 BAGS Age of first use: 17 Date of last use: 01/17/19 Cocaine Substance route: Inhalation Frequency: 3-6 times per week Amount used: 1 GRAM Age of first use: 18 Date of last use: 01/16/19 Family Disease History - Family Disease History Family Disease History: CA: Mother (cervical cancer,cva,), Other: Father (alcohol,) Admission Physical Exam [facility] - Vital Signs Vital Signs: Vital Signs - 24 hr 01/18/19 12:31 Temperature 98.3 F Pulse Rate 80 Respiratory 20 Rate Blood Pressure 135/78 - Physical General Appearance: Yes: Nourished, Appropriately Dressed, Anxious HEENTM: Yes: EOMI, Hearing grossly Normal, Normocephalic, Normal Voice, CHRISTINE, Pharynx Normal, Nasal Congestion Respiratory: Yes: Chest Non-Tender, Lungs Clear, Normal Breath Sounds, No Respiratory Distress, No Accessory Muscle Use Neck: Yes: No masses,lesions,Nodules, Supple, Trachea in good position Breast: Yes: Breast Exam Deferred Cardiology: Yes: Regular Rhythm, Regular Rate, S1, S2 Abdominal: Yes: Normal Bowel Sounds, Non Tender, Soft Genitourinary: Yes: Within Normal Limits Back: Yes: Normal Inspection, Muscle Spasm Musculoskeletal: Yes: full range of Motion, Gait Steady, Back pain, Muscle Pain Extremities: Yes: Normal Inspection, Normal Range of Motion, Non-Tender 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, Fully Oriented, Alert, Motor Strength 5/5, Normal Response, Other (ANXIOUS) Integumentary: Yes: Normal Color, Dry, Warm, Other (LEFT INNER THIGH WITH RESOLVING BLISTER/PLAQUE RASH) Lymphatic: Yes: Within Normal Limits Cleared for Admission [facility] - Detox or Rehab [facility] Level of Care: Medically Managed Detox Regimen/Protocol: Methadone Breathalyzer - Breathalyzer Breathalyzer: 0 Urine Drug Screen - Test Device Lot number: [id number] Expiration date: 10/04/20 - Control Is test valid?: Yes - Results Drug screen NEGATIVE: No Urine drug screen results: MOP-Opiates, MTD-Methadone Inpatient Rehab Admission - Rehab Decision to Admit Inpatient rehab admission?: No
[2019-01-18] MEDS ORDERED: MAGNESIUM CITRATE 300 ML BOTTLE PO PRN (13:53)
[2019-01-18] MEDS ORDERED: MAGNESIUM HYDROX 2400MG/30ML ORAL SUSPENSION 30 ML CUP PO PRN (13:53)
[2019-01-18] MEDS ORDERED: hydrOXYzine PAMOATE 25 MG CAPSULE (FP) PO PRN (13:53)
[2019-01-18] MEDS ORDERED: BISMUTH SUBSALICYLATE 524 MG/30 ML UD PO PRN (13:53)
[2019-01-18] MEDS ORDERED: MENTHOL/PHENOL 1 EACH UD MM PRN (13:53)
[2019-01-18] MEDS ORDERED: ACETAMINOPHEN 325 MG TABLET (FP) PO PRN (13:53)
[2019-01-18] MEDS ORDERED: NICOTINE POLACRILEX 2 MG GUM BUC PRN (13:53)
[2019-01-18] MEDS ORDERED: IBUPROFEN 400 MG TABLET (FP) PO PRN (13:53)
[2019-01-18] MEDS ORDERED: MAG HYDROX/AL HYDROX/SIMETH 30 ML UNIT-DOSE CUP PO PRN (13:53)
[2019-01-18] MEDS ORDERED: ALBUTEROL SO4 8 GM HFA INHALER IH PRN (13:55)
[2019-01-18] MEDS ORDERED: NALOXONE HCL 0.4 MG/ML VIAL IVPUSH PRN (13:57)
[2019-01-18] MEDS ORDERED: cloNIDine HCL 0.1 MG TABLET PO PRN (13:57)
[2019-01-18] MEDS ORDERED: METHADONE HCL 10 MG TABLET (FOR DETOX USE ONLY) PO ONE ×2 (15:45→23:00)
[2019-01-18 17:59] LABS: HEMATOCRIT 40.6 % (35.4-49); HEMOGLOBIN 13.6 GM/dL (11.7-16.9); MCH 27.9 pg (25.7-33.7); MCHC 33.4 g/dl (32.0-35.9); MEAN CELL VOLUME 83.4 fl (80-96); MEAN PLT VOLUME 9.3 fl (7.5-11.1); PLATELET COUNT 180 K/MM3 (134-434); RBC 4.87 M/mm3 (4.00-5.60); RDW 15.4 % (11.9-15.9); WHITE BLOOD COUNT 4.4 K/mm3 (4.0-10.0)
[2019-01-18 18:14] LABS: ALBUMIN 3.6 g/dl (3.4-5.0); BILIRUBIN,TOTAL 0.4 mg/dL (0.2-1); CALCIUM 9.6 mg/dL (8.5-10.1); CREATININE 1.2 mg/dL (0.55-1.3); POTASSIUM 4.3 mmol/L (3.5-5.1)
[2019-01-18] MEDS: THIAMINE HCL 100 MG TABLET (FP) PO SCH (22:05)
[2019-01-18] MEDS: ACYCLOVIR 400 MG TABLET PO SCH (22:05)
[2019-01-18] MEDS: MELATONIN 5 MG TABLETS PO PRN (22:06)
[2019-01-19] MEDS: ACYCLOVIR 400 MG TABLET PO SCH ×3 (07:24→22:45)
[2019-01-19] MEDS: BICTEGRAV/EMTRICIT/TENOFOV (BIKTARVY) 50-200-25 MG TABLET PO SCH (08:24)
[2019-01-19] MEDS ORDERED: METHADONE HCL 5 MG TABLET (FOR DETOX USE ONLY) PO ONE (10:00)
[2019-01-19] MEDS: PRENATAL VITAMINS W/ FOLIC ACID TABLET (FP) PO SCH (10:35)
[2019-01-19] MEDS: LISINOPRIL 20 MG TABLET (FP) PO SCH (10:35)
--- NOTE | 2019-01-19 10:51 | PN ---
S COWS - Scale Resting Pulse: 0= [place] 80 or Below Sweatin= Beads of Sweat on Face Restless Observation: 1= Difficult to Sit Still Pupil Size: 0= Normal to Room Light Bone or Joint Aches: 4=Acute Joint/Muscle Pain Runny Nose/ Eye Tearin= None GI Upset > 30mins: 0= None Tremor Observation of Outstretched Hands: 2= Slight Tremor Visible Yawning Observation: 1= 1-2x During Session Anxiety or Irritability: 0= None Goose Flesh Skin: 0=Smooth Skin COWS Score: 11 S Progress Note (SOAP) Subjective: c/o sweats, anxiety, body aches, and irritability. Objective: 01/19/19 10:49 Vital Signs 01/19/19 01/19/19 06:00 09:25 Temperature 97.6 F 98.4 F Pulse Rate 64 75 Respiratory 20 18 Rate Blood Pressure 112/73 133/85 Laboratory Last Values WBC 4.4 K/mm3 (4.0-10.0) 01/18/19 14:05 RBC 4.87 M/mm3 (4.00-5.60) 01/18/19 14:05 Hgb 13.6 GM/dL (11.7-16.9) 01/18/19 14:05 Hct 40.6 % (35.4-49) 01/18/19 14:05 MCV 83.4 fl (80-96) 01/18/19 14:05 MCH 27.9 pg (25.7-33.7) 01/18/19 14:05 MCHC 33.4 g/dl (32.0-35.9) 01/18/19 14:05 RDW 15.4 % (11.9-15.9) 01/18/19 14:05 Plt Count 180 K/MM3 (134-434) 01/18/19 14:05 MPV 9.3 fl (7.5-11.1) 01/18/19 14:05 Sodium 136 mmol/L (136-145) 01/18/19 14:05 Potassium 4.3 mmol/L (3.5-5.1) 01/18/19 14:05 Chloride 104 mmol/L (98-107) 01/18/19 14:05 Carbon Dioxide 27 mmol/L (21-32) 01/18/19 14:05 Anion Gap 6 MMOL/L (8-16) L 01/18/19 14:05 BUN 12 mg/dL (7-18) 01/18/19 14:05 Creatinine 1.2 mg/dL (0.55-1.3) 01/18/19 14:05 Est GFR (CKD-EPI)AfAm 76.79 01/18/19 14:05 Est GFR (CKD-EPI)NonAf 66.26 01/18/19 14:05 Random Glucose 69 mg/dL (74-106) L 01/18/19 14:05 Calcium 9.6 mg/dL (8.5-10.1) 01/18/19 14:05 Total Bilirubin 0.4 mg/dL (0.2-1) 01/18/19 14:05 AST 28 U/L (15-37) 01/18/19 14:05 ALT 33 U/L (13-61) 01/18/19 14:05 Alkaline Phosphatase 86 U/L (45-117) 01/18/19 14:05 Total Protein 8.0 g/dl (6.4-8.2) 01/18/19 14:05 Albumin 3.6 g/dl (3.4-5.0) 01/18/19 14:05 RPR Titer Nonreactive (NONREACTIVE) 01/18/19 14:05 Labs noted. Assessment: 01/19/19 10:50 AOX3, in no acute distress full rom, ambulating in the unit. withdrawal symptoms persists. Plan: continue detox increase fluids
--- NOTE | 2019-01-19 10:54 | EKG ---
Test Reason : Blood Pressure : / mmHG Vent. Rate : 062 BPM Atrial Rate : 062 BPM P-R Int : 206 ms QRS Dur : 094 ms QT Int : 412 ms P-R-T Axes : 046 -32 037 degrees QTc Int : 418 ms NORMAL SINUS RHYTHM WITH 1ST DEGREE A-V BLOCK LEFT AXIS DEVIATION MINIMAL VOLTAGE CRITERIA FOR LVH, MAY BE NORMAL VARIANT ABNORMAL ECG WHEN COMPARED WITH ECG OF 24-MAY-2017 15:52, NO SIGNIFICANT CHANGE WAS FOUND Confirmed by KRISSY CH MD ([id number]) on 01/19/2019 10:53:48 AM Referred By: Confirmed By:KRISSY CH MD
[2019-01-19] MEDS: THIAMINE HCL 100 MG TABLET (FP) PO SCH (22:45)
[2019-01-19] MEDS: MELATONIN 5 MG TABLETS PO PRN (22:45)
[2019-01-19] MEDS: clonazePAM 0.5 MG TABLET PO PRN (22:47)
[2019-01-20] MEDS: clonazePAM 0.5 MG TABLET PO PRN (05:13)
[2019-01-20] MEDS: ACYCLOVIR 400 MG TABLET PO SCH ×3 (05:14→22:50)
[2019-01-20] MEDS: BICTEGRAV/EMTRICIT/TENOFOV (BIKTARVY) 50-200-25 MG TABLET PO SCH (07:58)
[2019-01-20] MEDS ORDERED: METHADONE HCL 10 MG TABLET (FOR DETOX USE ONLY) PO ONE (10:00)
[2019-01-20 10:17] LABS: EPI CELLS 0.1 /HPF (0-5/HPF); PH,URINE 7.5 (5.0-8.0); URINE APPEARANCE CLEAR; URINE BACTERIA 0.7 /hpf (NEGATIVE); URINE BILIRUBIN NEGATIVE (NEGATIVE); URINE CASTS 1 /lpf (0-8); URINE COLOR YELLOW; URINE GLUCOSE (UA) NEGATIVE (NEGATIVE); URINE KETONE NEGATIVE (NEGATIVE); URINE LEUK ESTERASE NEGATIVE (NEGATIVE); URINE NITRITE NEGATIVE (NEGATIVE); URINE PROTEIN TRACE (NEGATIVE); URINE RBC 10 /hpf (0-4); URINE UROBILINOGEN 0.2 mg/dL (0.2-1.0); URINE WBC 2 /hpf (0-5)
[2019-01-20] MEDS: LISINOPRIL 20 MG TABLET (FP) PO SCH (10:49)
[2019-01-20] MEDS: PRENATAL VITAMINS W/ FOLIC ACID TABLET (FP) PO SCH (10:49)
--- NOTE | 2019-01-20 16:00 | PN ---
[facility] COWS - Scale Resting Pulse: 1= [place] 81-100 Sweatin= Chills/Flushing Restless Observation: 0= Sits Still Pupil Size: 0= Normal to Room Light Bone or Joint Aches: 2= Severe Diffuse Aches Runny Nose/ Eye Tearin= Runny Nose/Eyes GI Upset > 30mins: 2= Nausea/Diarrhea Tremor Observation of Outstretched Hands: 2= Slight Tremor Visible Yawning Observation: 0= None Anxiety or Irritability: 2=Irritable/Anxious Goose Flesh Skin: 0=Smooth Skin COWS Score: 12 BHS Progress Note (SOAP) Subjective: Patient denies any withdrawal symptoms stating medication keeping symptoms away. Patient is anxious. Objective: 01/20/19 15:58 Last Vital Signs Temp Pulse Resp BP Pulse Ox 97.5 F L 94 H 18 120/83 01/20/19 14:23 01/20/19 14:23 01/20/19 14:23 01/20/19 14:23 Laboratory Tests 01/18/19 01/18/19 01/18/19 14:05 14:05 14:05 WBC 4.4 RBC 4.87 Hgb 13.6 Hct 40.6 MCV 83.4 MCH 27.9 MCHC 33.4 RDW 15.4 Plt Count 180 MPV 9.3 Sodium 136 Potassium 4.3 Chloride 104 Carbon Dioxide 27 Anion Gap 6 L BUN 12 Creatinine 1.2 Est GFR (CKD-EPI)AfAm 76.79 Est GFR (CKD-EPI)NonAf 66.26 Random Glucose 69 L Calcium 9.6 Total Bilirubin 0.4 AST 28 ALT 33 Alkaline Phosphatase 86 Total Protein 8.0 Albumin 3.6 Urine Color Urine Appearance Urine pH Ur Specific [place] Urine Protein Urine Glucose (UA) Urine Ketones Urine Blood Urine Nitrite Urine Bilirubin Urine Urobilinogen Ur Leukocyte Esterase Urine WBC (Auto) Urine RBC (Auto) Urine Casts (Auto) U Epithel Cells (Auto) Urine Bacteria (Auto) RPR Titer Nonreactive 01/20/19 08:00 WBC RBC Hgb Hct MCV MCH MCHC RDW Plt Count MPV Sodium Potassium Chloride Carbon Dioxide Anion Gap BUN Creatinine Est GFR (CKD-EPI)AfAm Est GFR (CKD-EPI)NonAf Random Glucose Calcium Total Bilirubin AST ALT Alkaline Phosphatase Total Protein Albumin Urine Color Yellow Urine Appearance Clear Urine pH 7.5 D Ur Specific [place] 1.017 Urine Protein Trace Urine Glucose (UA) Negative Urine Ketones Negative Urine Blood 1+ H Urine Nitrite Negative Urine Bilirubin Negative Urine Urobilinogen 0.2 Ur Leukocyte Esterase Negative Urine WBC (Auto) 2 Urine RBC (Auto) 10 Urine Casts (Auto) 1 U Epithel Cells (Auto) 0.1 Urine Bacteria (Auto) 0.7 RPR Titer Labs reviewed: abnormal UA Assessment: 01/20/19 15:59 Withdrawal symptoms Noted with abnormal UA Plan: Continue detox Abnormal UA: encouraged PO water hydration Repeat UA
[2019-01-20] MEDS: THIAMINE HCL 100 MG TABLET (FP) PO SCH (22:50)
[2019-01-21] MEDS: ACYCLOVIR 400 MG TABLET PO SCH (05:56)
[2019-01-21] MEDS ORDERED: METHADONE HCL 5 MG TABLET (FOR DETOX USE ONLY) PO ONE (06:00)
[2019-01-21 07:19] VITALS: BP 111/65; PULSE 57; TEMP 97.7
--- NOTE | 2019-01-21 08:55 | DS ---
[facility] Detox Discharge Summary Admission Date: 01/18/19 Discharge Date: 01/21/19 - History Present History: Cocaine Dependence, Opioid Dependence - Physical Exam Results Vital Signs: Vital Signs Temperature 97.7 F 01/21/19 07:18 Pulse Rate 57 L 01/21/19 07:18 Respiratory Rate 18 01/21/19 07:18 Blood Pressure 111/65 01/21/19 07:18 O2 Sat by Pulse Oximetry (%) - Treatment Hospital Course: Detox Protocol Followed, Detoxed Safely, Responded well, Discharged Condition Good, Rehab Referral Accepted - Medication Discharge Medications: Ambulatory Orders Albuterol Sulfate Inhaler - [Ventolin HFA Inhaler -] 2 inh PO Q4H PRN #1 canister 09/28/15 Lisinopril [Prinivil] 20 mg PO DAILY 03/23/17 Bisacodyl [Bisacodyl -] 5 mg PO DAILY PRN 05/24/17 Bictegrav/Emtricit/Tenofov Ala [Biktarvy 50-200-25 mg Tablet] 1 tablet PO DAILY 01/18/19 - Diagnosis (1) Opioid dependence with withdrawal Current Visit: Yes Status: Chronic (2) Cocaine dependence, uncomplicated Current Visit: Yes Status: Chronic (3) HIV (human immunodeficiency virus infection) Current Visit: Yes Status: Chronic Qualifiers: HIV symptom status: unspecified Qualified Code(s): B20 - Human immunodeficiency virus [HIV] disease (4) Nicotine dependence Current Visit: Yes Status: Chronic Qualifiers: Nicotine product type: cigarettes Substance use status: uncomplicated Qualified Code(s): F17.210 - Nicotine dependence, cigarettes, uncomplicated (5) TB (tuberculosis), treated Current Visit: Yes Status: Chronic (6) Asthma Current Visit: Yes Status: Chronic Qualifiers: Asthma severity: mild Asthma complication type: uncomplicated (7) Hepatitis C antibody positive in blood Current Visit: No Status: Chronic - AMA Did Patient Leave Against Medical Advice: No (pt declined aftercare)
== END 2019-01-21 09:16 | disposition home or self-care (01) | DRG 773 ==
LOC: YASAS 11:16 → Y6N 15:11
PROVIDERS: ADMIT Surgery; ATTEND Surgery
PROC: HZ2ZZZZ Detoxification Services for Substance Abuse Treatment (ICD-10-PCS; principal; 2019-01-18)
DX: F11.23 Opioid dependence with withdrawal (principal); F14.20 Cocaine dependence, uncomplicated; F17.210 Nicotine dependence, cigarettes, uncomplicated; Z21 Asymptomatic human immunodeficiency virus [HIV] infection status; J45.20 Mild intermittent asthma, uncomplicated; A15.9 Respiratory tuberculosis unspecified; Z86.19 Personal history of other infectious and parasitic diseases
CPT/HCPCS: 36415; 80053; 81003; 85027; 86593; 93005; 93010; J0735

== ENCOUNTER 2019-04-12 19:19 | Inpatient (IN) | payer OTHER ==
[2019-04-12 21:07] VITALS: BMI 39.6
[2019-04-12] MEDS ORDERED: MAGNESIUM HYDROX 2400MG/30ML ORAL SUSPENSION 30 ML CUP PO PRN (22:07)
[2019-04-12] MEDS ORDERED: BISMUTH SUBSALICYLATE 524 MG/30 ML UD PO PRN (22:07)
[2019-04-12] MEDS ORDERED: METHOCARBAMOL 500 MG TABLET PO PRN (22:07)
[2019-04-12] MEDS ORDERED: chlordiazePOXIDE HCL 10 MG CAPSULE PO PRN (22:07)
[2019-04-12] MEDS ORDERED: IBUPROFEN 400 MG TABLET (FP) PO PRN (22:07)
[2019-04-12] MEDS ORDERED: MENTHOL/PHENOL 1 EACH UD MM PRN (22:07)
[2019-04-12] MEDS ORDERED: ACETAMINOPHEN 325 MG TABLET (FP) PO PRN ×2 (22:07)
[2019-04-12] MEDS ORDERED: METHADONE HCL 10 MG TABLET (FOR DETOX USE ONLY) PO ONE (22:07)
[2019-04-12] MEDS ORDERED: MAGNESIUM CITRATE 300 ML BOTTLE PO PRN (22:07)
[2019-04-12] MEDS ORDERED: MAG HYDROX/AL HYDROX/SIMETH 30 ML UNIT-DOSE CUP PO PRN (22:07)
[2019-04-12] MEDS ORDERED: hydrOXYzine PAMOATE 25 MG CAPSULE (FP) PO PRN (22:07)
--- NOTE | 2019-04-12 22:07 | HP ---
COWS - Scale Resting Pulse: 0= [place] 80 or Below Sweatin= Chills/Flushing Restless Observation: 1= Difficult to Sit Still Pupil Size: 2= Moderately Dilated Bone or Joint Aches: 2= Severe Diffuse Aches Runny Nose/ Eye Tearin= Runny Nose/Eyes GI Upset > 30mins: 2= Nausea/Diarrhea Tremor Observation: 1= Tremor [place], Not Seen Yawning Observation: 0= None Anxiety or Irritability: 2=Irritable/Anxious Goose Flesh Skin: 0=Smooth Skin COWS Score: 13 CIWA Score Nausea/Vomitin-Mild Nausea/No Vomiting Muscle Tremors: 3 Anxiety: 3 Agitation: 0-Normal Activity Paroxysmal Sweats: 2 Orientation: 0-Oriented Tacttile Disturbances: 0-None Auditory Disturbances: 0-None Visual Disturbances: 1-Very Mild Sensitivity Headache: 0-None Present CIWA-Ar Total Score: 10 - Admission Criteria OASAS Guidelines: Admission for Medically Managed Detox: Requires at least one of the followin. CIWA greater than 12 2. Seizures within the past 24 hours 3. Delirium tremens within the past 24 hours 4. Hallucinations within the past 24 hours 5. Acute intervention needed for co occurring medical disorder 6. Acute intervention needed for co occurring psychiatric disorder 7. Severe withdrawal that cannot be handled at a lower level of care (continued vomiting, continued diarrhea, abnormal vital signs) requiring intravenous medication and/or fluids 8. Patient presents the following: Acute intervention needed for co-occurring med or psych disorder Admission Criteria Met: Admission criteria met Admission ROS S - [facility] Chief Complaint: I MESSED UP Allergies/Adverse Reactions: Allergies Allergy/AdvReac Type Severity Reaction Status Date / Time aspirin Allergy Severe Hives Verified 04/12/19 20:56 History of Present Illness: PT PRESENTS FOR ADMISSION SP ADMISSION 01/20 INTERIM RELAPXSES WITHIN 1 WEEK OF DC MOTIVATED TOWARDS ABSTINENCE AND INTERESTED IN VIVITROL - Ebola screening Have you traveled outside of the country in the last 21 days: No (N) Have you had contact with anyone from an Ebola affected area: No Do you have a fever: No - Review of Systems Constitutional: Changes in sleep EENT: reports: Tearing, Nose Congestion Respiratory: reports: No Symptoms reported Cardiac: reports: No Symptoms Reported GI: reports: No Symptoms Reported : reports: No Symptoms Reported Musculoskeletal: reports: No Symptoms Reported Integumentary: reports: No Symptoms Reported Neuro: reports: No Symptoms reported Endocrine: reports: No Symptoms Reported Hematology: reports: No Symptoms Reported Psychiatric: reports: Judgement Intact, Orientated x3, Anxious Patient History - Patient Medical History Hx Anemia: No Hx Asthma: Yes Hx Chronic Obstructive Pulmonary Disease (COPD): No Hx Cancer: No Hx Cardiac Disorders: No Hx Congestive Heart Failure: No Hx Hypertension: Yes Hx Hypercholesterolemia: No Hx Pacemaker: No HX Cerebrovascular Accident: No Hx Seizures: No Hx Dementia: No Hx Diabetes: No Hx Gastrointestinal Disorders: No Hx Liver Disease: Yes (HEP C, Treated 2015) Hx Genitourinary Disorders: No Hx Sexually Transmitted Disorders: No Hx Renal Disease (ESRD): No Hx Thyroid Disease: No Hx Human Immunodeficiency Virus (HIV): Yes (since 1991;ON MED ) Hx Hepatitis C: Yes (TREATED) Hx Depression: No Hx Suicide Attempt: No (denies) Hx Bipolar Disorder: No Hx Schizophrenia: No - Patient Surgical History Past Surgical History: Yes Hx Neurologic Surgery: No Hx Cataract Extraction: No Hx Cardiac Surgery: No Hx Lung Surgery: No Hx Breast Surgery: No Hx Breast Biopsy: No Hx Abdominal Surgery: No Hx Appendectomy: Yes Hx Cholecystectomy: No Hx Genitourinary Surgery: No Hx Section: No Hx Orthopedic Surgery: No Other Surgical History: R index finger tip amputated at age 7. Anesthesia Reaction: No - PPD History Results: CXR NEG 12/19 - Smoking Cessation Smoking history: Current every day smoker Have you smoked in the past 12 months: Yes Aproximately how many cigarettes per day: 2 Cigars Per Day: 0 Hx Chewing Tobacco Use: No Initiated information on smoking cessation: Yes 'Breaking Loose' booklet given: 04/12/19 - Substances abused Heroin Substance route: Inhalation Frequency: Daily Amount used: 2 BAGS Age of first use: 17 Date of last use: 04/11/19 Cocaine Substance route: Inhalation Frequency: 3-6 times per week Amount used: 1 GRAM Age of first use: 18 Date of last use: 04/12/19 Crack Substance route: Smoking Frequency: Daily Amount used: 20 dollars Age of first use: 58 Date of last use: 04/11/19 Alcohol Substance route: Oral Frequency: Daily Amount used: half of brand/ 16 ounces of beer Age of first use: 13 Date of last use: 04/11/19 Family Disease History - Family Disease History Family Disease History: CA: Mother (cervical cancer,cva,), Other: Father (alcohol,) Admission Physical Exam [facility] - Vital Signs Vital Signs: Vital Signs - 24 hr 04/12/19 20:54 Temperature 98.9 F Pulse Rate 73 Respiratory 18 Rate Blood Pressure 138/94 - Physical General Appearance: Yes: Anxious HEENTM: Yes: EOMI Respiratory: Yes: Chest Non-Tender, Lungs Clear, Normal Breath Sounds Neck: Yes: Within Normal Limits Breast: Yes: Breast Exam Deferred Cardiology: Yes: Within Normal Limits, Regular Rhythm, Regular Rate, S1, S2 Abdominal: Yes: Within Normal Limits Genitourinary: Yes: Within Normal Limits Back: Yes: Within Normal Limits Musculoskeletal: Yes: Within Normal Limits Extremities: Yes: Within Normal Limits, Normal Capillary Refill, Normal Inspection, Normal Range of Motion 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 (5) Hepatitis C antibody positive in blood Current Visit: No Status: Chronic (6) Nicotine dependence Current Visit: No Status: Chronic Qualifiers: (7) Opioid dependence with withdrawal Current Visit: No Status: Chronic Breathalyzer - Breathalyzer Breathalyzer: 0 Urine Drug Screen - Test Device Lot number: [id number] Expiration date: 01/01/21 - Control Is test valid?: Yes - Results Drug screen NEGATIVE: No Urine drug screen results: REMIGIO-Cocaine, MOP-Opiates, MTD-Methadone Inpatient Rehab Admission - Rehab Decision to Admit Inpatient rehab admission?: No
[2019-04-12] MEDS: chlordiazePOXIDE HCL 25 MG CAPSULE PO SCH (22:52)
[2019-04-12] MEDS: MELATONIN 5 MG TABLETS PO PRN (22:52)
[2019-04-13] MEDS: chlordiazePOXIDE HCL 25 MG CAPSULE PO SCH ×3 (06:00→22:50)
[2019-04-13] MEDS ORDERED: ALBUTEROL SO4 8 GM HFA INHALER IH PRN (06:03)
[2019-04-13] MEDS: cloNIDine HCL 0.1 MG TABLET PO PRN ×2 (06:37→15:35)
[2019-04-13 09:58] LABS: HEMATOCRIT 38.7 % (35.4-49); MCHC 33.7 g/dl (32.0-35.9); MEAN PLT VOLUME 9.8 fl (7.5-11.1); PLATELET COUNT 152 K/MM3 (134-434); RBC 4.66 M/mm3 (4.00-5.60); RDW 13.3 % (11.9-15.9)
[2019-04-13] MEDS ORDERED: METHADONE HCL 5 MG TABLET (FOR DETOX USE ONLY) PO ONE (10:00)
[2019-04-13 10:16] LABS: ALBUMIN 3.4 g/dl (3.4-5.0); BILIRUBIN,TOTAL 0.3 mg/dL (0.2-1); BLOOD UREA NITROGEN 11.8 mg/dL (7-18); CALCIUM 9.4 mg/dL (8.5-10.1); CREATININE 1.2 mg/dL (0.55-1.3); POTASSIUM 4.1 mmol/L (3.5-5.1); TOT PROT 7.9 g/dl (6.4-8.2)
[2019-04-13] MEDS: PRENATAL VITAMINS W/ FOLIC ACID TABLET (FP) PO SCH (10:41)
--- NOTE | 2019-04-13 11:56 | PN ---
S CIWA - CIWA Score Nausea/Vomitin-No Nausea/No Vomiting Muscle Tremors: 2 Anxiety: 3 Agitation: 0-Normal Activity Paroxysmal Sweats: 3 Orientation: 0-Oriented Tacttile Disturbances: 0-None Auditory Disturbances: 0-None Visual Disturbances: 0-None Headache: 2-Mild CIWA-Ar Total Score: 10 [facility] COWS - Scale Resting Pulse: 0= [place] 80 or Below Sweatin= Beads of Sweat on Face Restless Observation: 1= Difficult to Sit Still Pupil Size: 0= Normal to Room Light Bone or Joint Aches: 2= Severe Diffuse Aches Runny Nose/ Eye Tearin= None GI Upset > 30mins: 0= None Tremor Observation of Outstretched Hands: 2= Slight Tremor Visible Yawning Observation: 1= 1-2x During Session Anxiety or Irritability: 1=Feels Anxious/Irritable Goose Flesh Skin: 0=Smooth Skin COWS Score: 10 [facility] Progress Note (SOAP) Subjective: c/o anxiety, irritability, sweats, and headache. Objective: 04/13/19 11:55 Vital Signs 04/13/19 04/13/19 06:39 09:27 Temperature 98.2 F 97.6 F Pulse Rate 60 80 Respiratory 18 18 Rate Blood Pressure 160/96 129/89 Lab Results WBC 4.0 K/mm3 (4.0-10.0) 04/13/19 08:00 RBC 4.66 M/mm3 (4.00-5.60) 04/13/19 08:00 Hgb 13.0 GM/dL (11.7-16.9) 04/13/19 08:00 Hct 38.7 % (35.4-49) 04/13/19 08:00 MCV 83.0 fl (80-96) 04/13/19 08:00 MCHC 33.7 g/dl (32.0-35.9) 04/13/19 08:00 RDW 13.3 % (11.9-15.9) D 04/13/19 08:00 Plt Count 152 K/MM3 (134-434) 04/13/19 08:00 Sodium 139 mmol/L (136-145) 04/13/19 08:00 Potassium 4.1 mmol/L (3.5-5.1) 04/13/19 08:00 Chloride 104 mmol/L (98-107) 04/13/19 08:00 Carbon Dioxide 28 mmol/L (21-32) 04/13/19 08:00 Anion Gap 7 MMOL/L (8-16) L 04/13/19 08:00 BUN 11.8 mg/dL (7-18) 04/13/19 08:00 Creatinine 1.2 mg/dL (0.55-1.3) 04/13/19 08:00 Random Glucose 77 mg/dL (74-106) 04/13/19 08:00 Calcium 9.4 mg/dL (8.5-10.1) 04/13/19 08:00 Labs noted. Assessment: 04/13/19 11:56 AOX3, in no acute respiratory distress Full ROM, ambulating in the unit. withdrawal symptoms. Plan: continue detox.
[2019-04-13] MEDS ORDERED: THIAMINE HCL 100 MG TABLET (FP) PO SCH (22:00)
[2019-04-13] MEDS: MELATONIN 5 MG TABLETS PO PRN (22:50)
[2019-04-14] MEDS: chlordiazePOXIDE 5 MG CAPSULE PO SCH ×2 (05:05→13:41)
[2019-04-14] MEDS ORDERED: METHADONE HCL 10 MG TABLET (FOR DETOX USE ONLY) PO ONE (10:00)
[2019-04-14] MEDS: PRENATAL VITAMINS W/ FOLIC ACID TABLET (FP) PO SCH (10:54)
[2019-04-14 14:25] VITALS: BP 135/97; PULSE 72; TEMP 98.4
--- NOTE | 2019-04-14 15:23 | DS ---
[facility] Detox Discharge Summary Admission Date: 04/12/19 Discharge Date: 04/14/19 - History Present History: Alcohol Dependence, Opioid Dependence, Sedative Dependence Additional Comments: 58 years old male admitted on 04/12/19 for acute alcohol and benzo and opiate withdrawal sx management doing well with librium and methadone detox protocol no complication throughout the detox stay alert oriented x 3 no dizziness no chest pain no shortness of breath Pertinent Past History: hiv hypertension asthma patient may return to his infectious disease specialist for medical and mental issues - Physical Exam Results Vital Signs: Vital Signs Temperature 98.4 F 04/14/19 13:24 Pulse Rate 72 04/14/19 13:24 Respiratory Rate 18 04/14/19 13:24 Blood Pressure 135/97 04/14/19 13:24 O2 Sat by Pulse Oximetry (%) Pertinent Admission Physical Exam Findings: alcohol benzo and opiate withdrawal sx Vital Signs Temperature 98.4 F 04/14/19 13:24 Pulse Rate 72 04/14/19 13:24 Respiratory Rate 18 04/14/19 13:24 Blood Pressure 135/97 04/14/19 13:24 O2 Sat by Pulse Oximetry (%) Laboratory Last Values WBC 4.0 K/mm3 (4.0-10.0) 04/13/19 08:00 RBC 4.66 M/mm3 (4.00-5.60) 04/13/19 08:00 Hgb 13.0 GM/dL (11.7-16.9) 04/13/19 08:00 Hct 38.7 % (35.4-49) 04/13/19 08:00 MCV 83.0 fl (80-96) 04/13/19 08:00 MCH 28.0 pg (25.7-33.7) 04/13/19 08:00 MCHC 33.7 g/dl (32.0-35.9) 04/13/19 08:00 RDW 13.3 % (11.9-15.9) D 04/13/19 08:00 Plt Count 152 K/MM3 (134-434) 04/13/19 08:00 MPV 9.8 fl (7.5-11.1) 04/13/19 08:00 Sodium 139 mmol/L (136-145) 04/13/19 08:00 Potassium 4.1 mmol/L (3.5-5.1) 04/13/19 08:00 Chloride 104 mmol/L (98-107) 04/13/19 08:00 Carbon Dioxide 28 mmol/L (21-32) 04/13/19 08:00 Anion Gap 7 MMOL/L (8-16) L 04/13/19 08:00 BUN 11.8 mg/dL (7-18) 04/13/19 08:00 Creatinine 1.2 mg/dL (0.55-1.3) 04/13/19 08:00 Est GFR (CKD-EPI)AfAm 76.79 04/13/19 08:00 Est GFR (CKD-EPI)NonAf 66.26 04/13/19 08:00 Random Glucose 77 mg/dL (74-106) 04/13/19 08:00 Calcium 9.4 mg/dL (8.5-10.1) 04/13/19 08:00 Total Bilirubin 0.3 mg/dL (0.2-1) 04/13/19 08:00 AST 35 U/L (15-37) 04/13/19 08:00 ALT 58 U/L (13-61) 04/13/19 08:00 Alkaline Phosphatase 91 U/L (45-117) 04/13/19 08:00 Total Protein 7.9 g/dl (6.4-8.2) 04/13/19 08:00 Albumin 3.4 g/dl (3.4-5.0) 04/13/19 08:00 RPR Titer Nonreactive (NONREACTIVE) 04/13/19 08:00 lab noted - Treatment Hospital Course: Detox Protocol Followed, Detoxed Safely, Responded well, Discharged Condition Good, Rehab Referral Accepted Patient has Accepted a Rehab Referral to: community support approach - Medication Discharge Medications: Ambulatory Orders Bisacodyl [Bisacodyl -] 5 mg PO DAILY PRN 05/24/17 Bictegrav/Emtricit/Tenofov Ala [Biktarvy 50-200-25 mg Tablet] 1 tablet PO DAILY 01/18/19 Albuterol Sulfate Inhaler - [Ventolin HFA Inhaler -] 2 inh PO Q4H PRN #1 canister 04/14/19 Albuterol Sulfate Inhaler - [Ventolin HFA Inhaler -] 2 puff IH Q4H PRN #1 inhaler 04/14/19 Lisinopril [Prinivil] 20 mg PO DAILY #30 tablet 04/14/19 - Diagnosis (1) Asthma Status: Chronic Qualifiers: Asthma severity: mild Asthma persistence: intermittent Asthma complication type: with status asthmaticus Qualified Code(s): J45.22 - Mild intermittent asthma with status asthmaticus (2) HIV (human immunodeficiency virus infection) Status: Chronic Qualifiers: HIV symptom status: asymptomatic Qualified Code(s): Z21 - Asymptomatic human immunodeficiency virus [HIV] infection status (3) Hepatitis C antibody positive in blood Status: Chronic (4) Nicotine dependence Status: Acute Qualifiers: Nicotine product type: cigarettes Substance use status: in withdrawal Qualified Code(s): F17.213 - Nicotine dependence, cigarettes, with withdrawal (5) Opioid dependence with withdrawal Status: Acute (6) TB (tuberculosis), treated Status: Resolved - AMA Did Patient Leave Against Medical Advice: No CIWA Score - CIWA Score Nausea/Vomitin-No Nausea/No Vomiting Muscle Tremors: 1-None Visible, but Shafer Anxiety: 2 Agitation: 0-Normal Activity Paroxysmal Sweats: 1-Minimal Palms Moist Orientation: 0-Oriented Tacttile Disturbances: 0-None Auditory Disturbances: 0-None Visual Disturbances: 0-None Headache: 1-Very Mild CIWA-Ar Total Score: 5 COWS (PN) - Opiate Withdrawal Resting Pulse: 0= SC 80 or Below Sweatin= Chills/Flushing Restless Observation: 0= Sits Still Pupil Size: 0= Normal to Room Light Bone or Joint Aches: 1= Mild Discomfort Runny Nose/ Eye Tearin= None GI Upset > 30mins: 0= None Tremor Observation of Outstretched Hands: 1= Tremor Shafer, Not Seen Yawning Observation: 1= 1-2x During Session Anxiety or Irritability: 1=Feels Anxious/Irritable Goose Flesh Skin: 0=Smooth Skin COWS Score: 5
[2019-04-15] MEDS ORDERED: chlordiazePOXIDE HCL 10 MG CAPSULE PO PRN
[2019-04-15] MEDS ORDERED: chlordiazePOXIDE HCL 10 MG CAPSULE PO SCH (05:00)
[2019-04-15] MEDS ORDERED: METHADONE HCL 5 MG TABLET (FOR DETOX USE ONLY) PO ONE (06:00)
[2019-04-16] MEDS ORDERED: chlordiazePOXIDE HCL 10 MG CAPSULE PO ONE (05:00)
== END 2019-04-14 14:40 | disposition home or self-care (01) | DRG 773 ==
LOC: YASAS 19:19 → Y3N 22:05
PROVIDERS: ADMIT Surgery; ATTEND Surgery
PROC: HZ2ZZZZ Detoxification Services for Substance Abuse Treatment (ICD-10-PCS; principal; 2019-04-12)
DX: F11.23 Opioid dependence with withdrawal (principal); F10.230 Alcohol dependence with withdrawal, uncomplicated; F14.20 Cocaine dependence, uncomplicated; F17.210 Nicotine dependence, cigarettes, uncomplicated; I10 Essential (primary) hypertension; J45.22 Mild intermittent asthma with status asthmaticus; B18.2 Chronic viral hepatitis C; Z21 Asymptomatic human immunodeficiency virus [HIV] infection status; Z89.021 Acquired absence of right finger(s); Z88.6 Allergy status to analgesic agent; Z86.11 Personal history of tuberculosis
CPT/HCPCS: 36415; 80053; 85027; 86593; J0735